=== PATIENT | male | born 1955 | race Caucasian/White ===

== ENCOUNTER 2023-02-07 18:47 | Emergency (ER) | payer MEDICARE, BC, SELFPAY ==
[2023-02-07 19:31] VITALS: BP 93/56; PULSE 87; RESP 18; TEMP 36.8; O2SAT 98; BMI 24.3
[2023-02-07 20:00] VITALS: BP 131/66; PULSE 82; RESP 18; O2SAT 99
[2023-02-07 20:30] VITALS: BP 145/75; PULSE 78; RESP 18; O2SAT 99
--- NOTE | 2023-02-07 20:34 | CT_ITS ---
PROCEDURE INFORMATION: Exam: CT Abdomen And Pelvis With Contrast Exam date and time: 02/07/2023 10:10 PM Age: 67 years old Clinical indication: Abdominal pain; Patient HX: Patient had CT [facility] with iv/oral contrast. C/O abd pain TECHNIQUE: Imaging protocol: Computed tomography of the abdomen and pelvis with contrast. Radiation optimization: All CT scans at this facility use at least one of these dose optimization techniques: automated exposure control; mA and/or kV adjustment per patient size (includes targeted exams where dose is matched to clinical indication); or iterative reconstruction. Contrast material: ISOVUE; Contrast volume: 75 ml; Contrast route: IV; REPORTING DATA: Count of CT and Cardiac NM exams in prior 12 months: This patient has received 0 known CTs and 0 known cardiac nuclear medicine studies in the 12 months prior to the current study. COMPARISON: No relevant prior studies available. FINDINGS: Lungs: Nonspecific subpleural reticulation of the lung bases. Coronary arteries: There is moderate coronary atherosclerotic disease/calcification. Liver: Normal. No mass. Gallbladder and bile ducts: The patient is status post cholecystectomy. There is dilation of the intrahepatic biliary ducts most likely reflecting post cholecystectomy effect. Pancreas: There is fatty replacement of the pancreas. Spleen: Normal. No splenomegaly. Adrenal glands: Normal. No mass. Kidneys and ureters: There is mild left hydroureter extending to the pelvis without an obstructing calculus seen. Stomach and bowel: Unremarkable. No obstruction. No mucosal thickening. Appendix: The appendix is normal. Intraperitoneal space: Unremarkable. No free air. No significant fluid collection. Vasculature: There is atherosclerotic disease of the visualized aorta and its major branch vessels. Lymph nodes: Unremarkable. No enlarged lymph nodes. Urinary bladder: There is moderate distention of the urinary bladder. Reproductive: Unremarkable as visualized. Bones/joints: The patient is status post median sternotomy. There is diffuse degenerative disease of the visualized osseous structures. 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 Soft tissues: There is bilateral gynecomastia. Nonspecific subcutaneous changes in the anterior abdominal wall bilaterally (image 92 series 3). IMPRESSION: 1. There is mild left hydroureter extending to a significantly distended urinary bladder without an obstructing calculus seen. 2. 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
--- NOTE | 2023-02-07 20:34 | XR_ITS ---
PROCEDURE INFORMATION: Exam: XR Chest Exam date and time: 02/07/2023 10:29 PM Age: 67 years old Clinical indication: Other: V/d; Prior surgery; Surgery date: 6+ months; Surgery type: Open heart 2007; Additional info: V d TECHNIQUE: Imaging protocol: Radiologic exam of the chest. Views: 1 view. COMPARISON: CT ABDOMEN PELVIS W CON 02/07/2023 10:10 PM FINDINGS: Lungs: Unremarkable. No consolidation. Pleural spaces: Unremarkable. No pleural effusion. No pneumothorax. Heart/Mediastinum: Unremarkable. No cardiomegaly. Bones/joints: The patient is status post median sternotomy. There is partially visualized cervical spine surgical hardware. IMPRESSION: No dense parenchymal consolidation, pleural effusion, or pneumothorax.
[2023-02-07 20:43] LABS: Basophils # 0.1 K/mm3 (0-0.2); Basophils % 1.2 % (0.1-2.0); Eosinophils # 0.1 K/mm3 (0.0-0.4); Hematocrit 40.2 % (42.0-52.0); Hemoglobin 12.5 g/dL (14.1-18.0); Lymphocytes # 2.2 K/mm3 (0.7-4.5); Lymphocytes % 32.9 % (10-50); Mean Corpuscular HGB Conc 31.2 g/dL (31.8-35.4); Mean Corpuscular Hemoglobin 28.8 pg (27.0-31.2); Mean Corpuscular Volume 92.1 fl (80-94); Mean Platelet Volume 9.1 fl (7.4-10.4); Monocytes # 0.4 K/mm3 (0.1-1.0); Monocytes % 5.9 % (1.7-9.3); Neutrophils # 3.8 K/mm3 (1.8-7.8); Neutrophils % 58.1 % (37.0-80.0); Platelet Count 178 K/mm3 (142-424); Red Blood Count 4.36 M/mm3 (4.60-6.20); White Blood Count 6.6 K/mm3 (4.8-10.8)
[2023-02-07 20:44] LABS: Chloride 100 mmol/L (98-107); Potassium 4.1 mmoL/L (3.5-5.1); Sodium 132 mmol/L (136-145)
[2023-02-07 20:46] LABS: Blood Urea Nitrogen 20 mg/dl (9-20)
[2023-02-07 20:47] LABS: Alanine Aminotransferase 23 U/L (12-78); Albumin Level 3.4 g/dl (3.5-5.0); Albumin/Globulin Ratio 1.2 (1.1-1.8); Alkaline Phosphatase 50 U/L (38-126); Anion Gap 13.1 mEq/L (5-15); Aspartate Amino Transferase 25 U/L (17-59); Bilirubin,Total 0.3 mg/dl (0.2-1.3); Calcium 8.2 mg/dl (8.4-10.2); Carbon Dioxide 23 mmol/L (22.0-30.0); Creatinine Clearance Estimated 76 mL/min (50-200); Estimated Glomerular Filt Rate 61 ml/min (>60); GFR (African American) 73 ML/MIN (>60); Globulin 2.8 g/dL (1.3-3.2); Lipase 62 U/L (23-300); Total Protein,Serum 6.2 g/dl (6.3-8.2)
[2023-02-07 21:00] VITALS: BP 161/77; RESP 18; O2SAT 99
[2023-02-07 21:02] LABS: Glucose 423 mg/dl (74-100)
[2023-02-07 21:30] VITALS: BP 162/85; PULSE 83; RESP 17; O2SAT 99
[2023-02-07 22:00] VITALS: BP 166/85; PULSE 78; RESP 18; O2SAT 99
--- NOTE | 2023-02-07 22:03 | HMH.EDGENADL ---
Discharge Plan Disposition Patient Disposition: Home, Self-Care Prescriptions Prescriptions: New ondansetron 4 mg tablet,disintegrating 4 mg PO Q8H PRN (Reason: nausea and vomiting) 4 Days Qty: 12 0RF No Action citalopram 40 mg tablet 40 mg PO DAILY diphenoxylate-atropine 2.5-0.025 mg tablet 2.5 tab PO Q6H PRN (Reason: unknown) simvastatin 40 mg tablet 40 mg PO DAILY metformin 1,000 mg tablet 1,000 mg PO DAILY metoprolol tartrate 25 mg tablet 25 mg PO DAILY insulin glargine [Basaglar KwikPen U-100 Insulin] 100 unit/mL (3 mL) insulin pen 50 unit SQ BID Patient Comments: ADMINISTER 50 UNITS UNDER THE SKIN 1 TIME EACH DAY IN THE MORNING aspirin 325 mg Tablet 325 mg PO DAILY Referrals Follow up/Referrals: Leonora Oavlle [Primary Care Provider] - See instructions Rajat Mcrae DO [Staff Physician] - See instructions Activity Restrictions/Add. Instructions Additional Instructions/Restrictions: At this time is felt you are safe to be discharged home. If new or worsening symptoms please do not hesitate to return the emergency department. Please take your medication as prescribed and call and schedule an appointment with Dr. Mcrae as soon as you are able. Clinical Impressions Clinical Impression: Abdominal pain, Acute hyperglycemia Discharge ED Provider: Tutu Hickey General Adult HPI General Chief complaint: Nausea/Vomiting/Diarrhea Stated complaint: V&D for 12 days Time Seen by Provider: 02/07/23 20:00 Mode of Arrival: Ambulatory Source of Information: Relative Limitations: No Limitations Description of Symptoms (Recalled from ER Triage Doc. by RN): 67 y/o male presents to ED with N/V/D x12 days. Increasing abd pain. Daughter reports she took patient to his primary care doctor on Saturday and she ordered a CT scan at [facility]. Daughter states they have not gotten the offical report of scan but was told he had a herina and a possible mass. Daughter reports 20lbs weight loss since October and increasing weakness. History of Present Illness HPI narrative: Patient is a 67-year-old male with past medical history of ACS status post stenting, hypertension, insulin-dependent diabetes who presents emergency department for evaluation of abdominal pain. History is obtained largely by family member at bedside. Over the last 3 months patient has lost 20 pounds through no effort of his own. Over the last 12 days he has had diffuse abdominal pain worse on the left side, nonbloody vomiting, nonbloody diarrhea. He ultimately presented to [facility] where he was reportedly diagnosed with a mass as well as a hernia for which she was discharged home with outpatient follow-up. They are concerned due to his persistent symptoms and lack of communication between providers and present here for continued evaluation. Patient symptoms are moderate to severe in intensity. Related Data Home Medications Medication Instructions Recorded Confirmed aspirin 325 mg tablet 325 mg PO DAILY Blood Thinner 02/07/23 02/07/23 citalopram 40 mg tablet 40 mg PO DAILY Depression 02/07/23 02/07/23 diphenoxylate-atropine 2.5 2.5 tab PO Q6H PRN unknown 02/07/23 02/07/23 mg-0.025 mg tablet insulin glargine 100 unit/mL (3 50 unit SQ BID Diabetes 02/07/23 02/07/23 mL) subcutaneous pen (Basaglar KwikPen U-100 Insulin) metformin 1,000 mg tablet 1,000 mg PO DAILY Diabetes 02/07/23 02/07/23 metoprolol tartrate 25 mg tablet 25 mg PO DAILY BP 02/07/23 02/07/23 simvastatin 40 mg tablet 40 mg PO DAILY Cholesterol 02/07/23 02/07/23 Previous Rx's Medication Instructions Recorded ondansetron 4 mg disintegrating 4 mg PO Q8H PRN nausea and 02/07/23 tablet vomiting 4 days #12 tabs Allergies Allergy/AdvReac Type Severity Reaction Status Date / Time ciprofloxacin [From Cipro] Allergy Verified 02/07/23 20:34 levofloxacin [From Levaquin] Allergy Verified 02/07/23 20:34 [facility]
[2023-02-07 22:18] LABS: VBG Base Excess -3.5 mmol/L (-2.4-2.3); VBG Oxygen Saturation 90.4 % (50-70); VBG PCO2 48.1 mmol/L (35-51); VBG PO2 63.3 mmol/L (28-40); VBG Total CO2 24.5 mmol/L (23-27)
[2023-02-07 22:31] LABS: Microscopic, Urine URINE MICROSCOPIC (MICROSCOPIC)
[2023-02-07 22:32] LABS: Appearance,Urine CLEAR (Clear); Bilirubin,Urine Negative (Negative); Blood, Urine Negative (Negative); Color,Urine YELLOW (Yellow); Glucose,Urine (UA) 3+ (Negative); Ketones,Urine Negative (Negative); Leukocyte Esterase,Urine Negative (Negative); Nitrate,Urine Negative (Negative); Protein,Urine 1+ (Negative); Urobilinogen,Urine 0.2 EU/dl (0.2)
[2023-02-07 23:15] LABS: Squamous Epithelial Cell,Urine Occasional #/hpf (0-5)
--- NOTE | 2023-02-07 23:30 | PC.NURSE ---
called lab and spoke with doug, advised of acetone lab add on
[2023-02-07 23:34] LABS: Acetone, Serum (Rapid) None Detected (None Detect)
[2023-02-08 01:00] VITALS: BP 114/72; PULSE 87; RESP 20; TEMP 36.4; O2SAT 97
== END 2023-02-08 00:55 | disposition home or self-care (01) ==
PROVIDERS: Emergency Provider Emergency Medicine; PCP Family Medicine
DX: R10.9 Unspecified abdominal pain (principal); E11.65 Type 2 diabetes mellitus with hyperglycemia; R11.2 Nausea with vomiting, unspecified; R19.7 Diarrhea, unspecified; R63.4 Abnormal weight loss; I10 Essential (primary) hypertension
CPT/HCPCS: 71045; 74177; 80053; 81001; 82009; 82803; 83605; 83690; 85025; 96361; 96374; 96375; 99285; J2405; Q9967

== ENCOUNTER → 2023-03-06 07:38 | Outpatient (CLI) | payer MEDICARE, BC, SELFPAY ==
--- NOTE | 2023-03-06 07:38 | NM_ITS ---
FINAL REPORT TECHNIQUE: Sequential anterior images were obtained after the ingestion of 2 whole eggs, white toast with butter, and 6 oz of water radiolabeled with 0.66 mCi technetium 99M sulfur colloid. CLINICAL HISTORY: Abd Pain, N/V, suspected diabetic gastroparesis 7:45 am .67 [facility] sulfur colloid injected into 2 whole eggs..white toast with butter and 6 oz cup of water COMPARISON: None FINDINGS: GASTRIC EMPTYING SCAN Static images show normal emptying of the stomach into the small bowel. Based on the time activity curve, the estimated half-emptying time is 149 minutes. IMPRESSION: Abnormally long gastric emptying study. Reviewed, Interpreted and Dictated by Osito Cantu III, MD Transcribed by Dalia Lawson Authenticated and [facility]
== END ==
PROVIDERS: PCP Internal Medicine; Visit Provider Internal Medicine
DX: E11.43 Type 2 diabetes mellitus with diabetic autonomic (poly)neuropathy (principal); K31.84 Gastroparesis; R10.9 Unspecified abdominal pain; Z79.4 Long term (current) use of insulin; Z79.84 Long term (current) use of oral hypoglycemic drugs
CPT/HCPCS: 78264; A9541

== ENCOUNTER 2023-03-27 07:56 | Observation (INO) | payer MEDICARE, BC, SELFPAY ==
[2023-03-27] VITALS (18 sets, daily range): BP systolic 131–181; BP diastolic 63–89; PULSE 80–91; RESP 11–18; TEMP 36.7–37.6; O2SAT 93–100; BMI 26.6; BMI 26.1
--- NOTE | 2023-03-27 08:04 | CT_ITS ---
FINAL REPORT TECHNIQUE: Thin section axial images were obtained from skull base to vertex without contrast. Coronal reconstruction images were obtained from the axial data. Exam was performed using dose reduction technique. CLINICAL HISTORY: fall, head trauma COMPARISON: None FINDINGS: There is age-appropriate atrophy. There is no mass effect or midline shift. There is no intracranial hemorrhage. There is no hydrocephalus. No focal parenchymal abnormalities are identified. The basilar cisterns are preserved. The posterior fossa is without acute abnormality. There is mucoperiosteal thickening in the left maxillary sinus, likely chronic. The soft tissues are without acute abnormality. No acute osseous abnormality is identified. IMPRESSION: No acute intracranial abnormality. Mild atrophy. Mucoperiosteal thickening in the left maxillary sinus, likely chronic. Reviewed, Interpreted and Dictated by Nelly Barton MD Transcribed by Noni Khan Authenticated and [facility]
--- NOTE | 2023-03-27 08:05 | CT_ITS ---
FINAL REPORT TECHNIQUE: Thin section axial images were obtained through the cervical spine without contrast. Multiplanar reconstruction images were obtained from the axial data. Exam was performed using dose reduction techniques. CLINICAL HISTORY: fall, +/- LOC COMPARISON: None FINDINGS: There is no acute fracture or acute malalignment of the cervical spine. There is no evidence of unilateral or bilateral facet lock. Vertebral body height is preserved. No acute paraspinal abnormality is identified. There is an anterior plate and screws bridging an anterior cervical fusion from the C5 through the C7 levels. Mild multilevel degenerative disc disease is present as well. IMPRESSION: No acute osseous abnormality of the cervical spine. Prior anterior cervical fusion C5-C7. Reviewed, Interpreted and Dictated by Nelly Barton MD Transcribed by Noni Khan Authenticated and [facility]
--- NOTE | 2023-03-27 08:05 | XR_ITS ---
FINAL REPORT CLINICAL HISTORY: fall, +/- LOC COMPARISON: 02/07/2023 FINDINGS: A portable view of the chest was obtained. A prior midline sternotomy has been performed. Cardiac and mediastinal silhouettes are within normal limits. The lungs are clear. There is no pleural effusion or pneumothorax. IMPRESSION: No acute process on this portable exam. Reviewed, Interpreted and Dictated by Nelly Barton MD Transcribed by Noni Khan Authenticated and [facility]
--- NOTE | 2023-03-27 08:13 | HMH.EDGENADL ---
Discharge Plan Disposition Patient Disposition: Home, Self-Care Prescriptions Prescriptions: No Action Jardiance 10 mg tablet 10 mg PO DAILY hyoscyamine sulfate 0.125 mg tablet, sublingual 0.125 mg PO QID Qty: 60 2RF hydroxyzine HCl 25 mg tablet 25 mg PO HS PRN (Reason: anxiety/difficulty sleeping) Qty: 30 2RF insulin lispro 100 unit/mL insulin pen 1 sliding scale dose SQ USEASDIRECTD Qty: 15 2RF promethazine 12.5 mg tablet 12.5 mg PO TID PRN (Reason: nausea and vomiting) Qty: 30 0RF citalopram 40 mg tablet 40 mg PO DAILY diphenoxylate-atropine 2.5-0.025 mg tablet 2.5 tab PO Q6H PRN (Reason: unknown) simvastatin 40 mg tablet 40 mg PO DAILY metformin 1,000 mg tablet 1,000 mg PO DAILY metoprolol tartrate 25 mg tablet 25 mg PO DAILY insulin glargine [Basaglar KwikPen U-100 Insulin] 100 unit/mL (3 mL) insulin pen 50 unit SQ BID Patient Comments: ADMINISTER 50 UNITS UNDER THE SKIN 1 TIME EACH DAY IN THE MORNING aspirin 325 mg Tablet 325 mg PO DAILY ondansetron 4 mg tablet,disintegrating 4 mg PO Q8H PRN (Reason: nausea and vomiting) 4 Days Qty: 12 0RF Referrals Follow up/Referrals: Rajat Mcrae DO [Primary Care Provider] - 03/28/23 9:00 am Provider,Referral, [Referring] - See instructions Activity Restrictions/Add. Instructions Additional Instructions/Restrictions: Call your family doctor to establish care for this visit to the emergency department and schedule follow-up within 48 hours to ensure improvement. If you have any worsening of your condition or any other concerning signs or symptoms, return to the emergency department or your primary care doctor for further evaluation. Follow-up with Dr. Mcrae tomorrow, 03/28 at 9 AM for further diabetes management. Clinical Impressions Clinical Impression: Facial laceration, Acute hyperglycemia, Fall, Uncontrolled diabetes mellitus Discharge ED Provider: Aaron Izaguirre General Adult HPI General Chief complaint: Fall Stated complaint: fall Time Seen by Provider: 03/27/23 08:00 History of Present Illness HPI narrative: 67-year-old male history of uncontrolled type 2 diabetes, gastroparesis, Charcot foot, CAD status post CABG currently on aspirin presenting with vomiting and fall. Patient states that he fell around 3 AM today, 03/27. Does not quite remember why he fell, but lives with his daughters who quickly attended to him. He hit his head and was bleeding, but was able to achieve hemostasis. Unsure about loss of consciousness before, during, after the fall. Denies headache, vision change, neck or back pain, but has been vomiting and having diarrhea, which is chronic. No blood in his vomit or stool. States that he has not been controlling his sugars or checking his sugars daily. Does not remember what his last A1c was. Other than this, asymptomatic at this time. Related Data Home Medications Medication Instructions Recorded Confirmed aspirin 325 mg tablet 325 mg PO DAILY Blood Thinner 02/07/23 03/27/23 citalopram 40 mg tablet 40 mg PO DAILY Depression 02/07/23 03/27/23 diphenoxylate-atropine 2.5 2.5 tab PO Q6H PRN unknown 02/07/23 03/27/23 mg-0.025 mg tablet insulin glargine 100 unit/mL (3 50 unit SQ BID Diabetes 02/07/23 03/27/23 mL) subcutaneous pen (Basaglar KwikPen U-100 Insulin) metformin 1,000 mg tablet 1,000 mg PO DAILY Diabetes 02/07/23 03/27/23 metoprolol tartrate 25 mg tablet 25 mg PO DAILY BP 02/07/23 03/27/23 simvastatin 40 mg tablet 40 mg PO DAILY Cholesterol 02/07/23 03/27/23 empagliflozin 10 mg tablet 10 mg PO DAILY 02/14/23 03/27/23 (Jardiance) Previous Rx's Medication Instructions Recorded ondansetron 4 mg disintegrating 4 mg PO Q8H PRN nausea and 02/07/23 tablet vomiting 4 days #12 tabs hydroxyzine HCl 25 mg tablet 25 mg PO HS PRN anxiety/difficulty 02/21/23 sleeping #30 tabs hyoscyamine sulfate 0.125 mg 0.125 mg PO QID #60 tabs 02/21/23 sublingual tablet insulin lispro 100 unit/mL 1 sliding scale dose SQ 02/22/23 subcutaneous pen USEASDIRECTD #15 mL promethazine 12.5 mg tablet 12.5 mg PO TID PRN nausea and 03/19/23 vomiting #30 tabs Allergies Allergy/AdvReac Type Severity Reaction Status Date / Time ciprofloxacin [From Cipro] Allergy Verified 03/27/23 08:32 levofloxacin [From Levaquin] Allergy Verified 03/27/23 08:32 PFSH [facility] Disclaimer: The information contained in this section may have been updated after the patient was seen, as this information can be updated by other users. Medical History Depression Diabetes type I Surgical History Hx of cholecystectomy S/P triple vessel bypass Social History Smoking Status: Never smoker alcohol intake: never current occupational status: other Travel in the last 8 weeks: None ROS Obtained: Yes All systems reviewed & no additional complaints except as documented Physical Exam General General appearance: alert and in no apparent distress Head Head exam: normocephalic and other (2 cm laceration frontal scalp over left eyebrow) Eye Eye exam: Present normal appearance, PERRL and EOMI ENT ENT exam: Present mucous membranes moist Neck Neck exam: Present normal inspection, full ROM and trachea midline Chest Chest inspection: Present other (Covered in vomitus) Respiratory Respiratory exam: Present normal lung sounds bilaterally; Absent respiratory distress, wheezes, stridor, accessory muscle use or prolonged expiratory phase Cardiovascular Cardiovascular exam: Present regular rate and normal rhythm Abdominal Exam Abdominal exam: Present soft; Absent distention, tenderness, guarding, rebound, rigidity or normal bowel sounds Extremities Exam Extremities exam: Present other (Multiple digital wounds. Worst of which is dorsal aspect of left long finger which appears necrotic. Surrounding erythema.); Absent edema Neurological Exam Neurological exam: Present alert, oriented X3, CN II-XII intact and normal gait; Absent motor sensory deficit Skin Skin exam: Present warm and dry; Absent diaphoresis or erythema Medical Decision Making Medical Records Medical records reviewed: Yes I reviewed the patient's medical records. Jaret Inquiry Pt receiving controlled substance: No Jaret was queried for this patient: No Vital Signs: 03/27/23 07:57 03/27/23 08:08 03/27/23 09:00 Temperature 98.0 F Temperature Source Oral Pulse Rate 85 86 Pulse Rate [Left Radial] 86 Respiratory Rate 17 13 Blood Pressure 169/82 H 131/70 Blood Pressure [Right Arm] 169/82 H Blood Pressure Mean [Right Arm] 111 02 Sat by Pulse Oximetry 95 96 95 Oxygen Delivery Method Room Air Room Air Room Air 03/27/23 09:30 03/27/23 10:01 03/27/23 10:30 Temperature Temperature Source Pulse Rate 85 82 82 Pulse Rate [Left Radial] Respiratory Rate 11 L 12 15 Blood Pressure 147/73 H 156/81 H 149/78 H Blood Pressure [Right Arm] Blood Pressure Mean [Right Arm] 02 Sat by Pulse Oximetry 96 97 96 Oxygen Delivery Method Room Air Room Air Lab Data Lab Results 03/27/23 08:06: VBG pH 7.25 L, VBG pCO2 53.0 H, VBG pO2 31.9, VBG HCO3 22.8 L, VBG Total CO2 24.4, VBG O2 Saturation 56.3, VBG Base Excess -4.4 L 03/27/23 08:16: WBC 9.7, RBC 4.36 L, Hgb 13.8 L, Hct 40.2 L, MCV 92.2, MCH 31.6 H, MCHC 34.3, RDW 13.4, Plt Count 152, MPV 9.3, Neut % (Auto) 78.4, Lymph % (Auto) 15.5, Early % (Auto) 4.6, Eos % (Auto) 0.8, Baso % (Auto) 0.6, Neut # (Auto) 7.6, Lymph # (Auto) 1.5, Early # (Auto) 0.5, Eos # (Auto) 0.1, Baso # (Auto) 0.1, PT 10.7, INR 0.99, APTT 24.2, Sodium 134 L, Potassium 3.6, Chloride 97 L, Carbon Dioxide 24, Anion Gap 16.6 H, BUN 21 H, Creatinine 1.10, Estimated Creat Clear 90, Estimated GFR 67, Est GFR ( Amer) 81, Glucose 483 H*, POC Glucose 461 H*, Hemoglobin A1c 12.4 H, Lactate 1.3, Calcium 9.2, Total Bilirubin 0.6, AST 25, ALT 19, Alkaline Phosphatase 60, Troponin I < 0.01, NT-Pro-B Natriuret Pep 790 H, Total Protein 7.1, Albumin 4.0, Globulin 3.1, Albumin/Globulin Ratio 1.3, Lipase 25, Acetone Level Small 03/27/23 10:33: POC Glucose 320 H* 03/27/23 11:46: Sodium 134 L, Potassium 3.6, Chloride 100, Carbon Dioxide 26, Anion Gap 11.6, BUN 21 H, Creatinine 1.00, Estimated Creat Clear 99, Estimated GFR 75, Est GFR ( Amer) 90, Glucose 338 H D, Calcium 8.8, Troponin I < 0.01 03/27/23 12:43: Urine Color Yellow, Urine Appearance Clear, Urine pH 6.0, Ur Specific Willis 1.020, Urine Protein 2+, Urine Glucose (UA) 3+, Urine Ketones 1+, Urine Blood 1+, Urine Nitrate Negative, Urine Bilirubin Negative, Urine Urobilinogen 0.2, Ur Leukocyte Esterase Negative 03/27/23 08:16 03/27/23 11:46 Orders (Tests/Meds): ED MEDICATIONS Discontinued Medications Generic Name Dose Route Start Last Admin Trade Name Jay PRN Reason Stop Dose Admin Lactated Ringer's 1,000 mls @ 999 mls/hr 03/27/23 08:04 03/27/23 09:20 Lactated Ringer's 1000 Ml Bag IV 03/27/23 09:04 999 mls/hr .Q1H1M ONE Administration Potassium Chloride/Water 100 mls @ 100 mls/hr 03/27/23 08:55 03/27/23 11:47 Potassium Chloride 10meq/100ml Ivpb IV 03/27/23 10:54 100 mls/hr Q1H RODRICK Administration Insulin Human Regular 5 unit 03/27/23 08:54 03/27/23 09:21 Insulin Human Regular 100 Units/Ml 10ml Vial 0.05 unit/kg (5 unit) 03/27/23 08:55 5 unit IV Administration ONCE ONE Insulin Human Regular 5 unit 03/27/23 12:12 03/27/23 12:22 Insulin Human Regular 100 Units/Ml 10ml Vial 0.05 unit/kg (5 unit) 03/27/23 12:13 5 unit IV Administration ONCE ONE Lidocaine HCl 10 ml 03/27/23 09:32 03/27/23 11:23 Lidocaine 1% 10ml Mdv SQ 03/27/23 09:33 10 ml ONCE ONE Administration ORDERS Category Date Time Status CT cervical spine wo con Stat Cat Scan 03/27/23 08:[address] head/brain wo con Stat Cat Scan 03/27/23 08:04 Taken XR chest portable Stat Exams 03/27/23 08:05 Taken Acetone, Serum (Rapid) Stat Lab 03/27/23 08:16 Completed Ammonia Stat Lab 03/27/23 08:05 Ordered BMP [Basic Metabolic Panel] Stat Lab 03/27/23 11:46 Completed Brain Natriuretic Peptide Stat Lab 03/27/23 08:16 Completed Complete Blood Count Auto Diff Stat Lab 03/27/23 08:16 Completed Comprehensive Metabolic Panel Stat Lab 03/27/23 08:16 Completed Hemoglobin A1C Stat Lab 03/27/23 08:16 Completed Lactic Acid Stat Lab 03/27/23 08:16 Completed Lipase Stat Lab 03/27/23 08:16 Completed POC Glucose,Bedside Routine Lab 03/27/23 08:16 Completed POC Glucose,Bedside Routine Lab 03/27/23 10:33 Completed PT INR [Prothrombin Time INR] Stat Lab 03/27/23 08:16 Completed PTT [Activated Partial Thrombo Time] Stat Lab 03/27/23 08:16 Completed Troponin I Q3H Lab 03/27/23 11:46 Completed Troponin I Q3H Lab 03/27/23 14:15 Ordered Troponin I Stat Lab 03/27/23 08:16 Completed Urinalysis and Microscopic Stat Lab 03/27/23 12:43 Results Blood Culture Stat Micro 03/27/23 08:21 Received Venous Blood Gas Stat RT 03/27/23 08:06 Completed ECG initial Besson Routine Y 03/27/23 08:43 Completed Medical Decision Narrative: 67-year-old male history of uncontrolled type 2 diabetes, gastroparesis, Charcot foot, CAD status post CABG currently on aspirin presenting with vomiting and fall. Patient states that he fell around 3 AM today, 03/27. Does not quite remember why he fell, but lives with his daughters who quickly attended to him. He hit his head and was bleeding, but was able to achieve hemostasis. Unsure about loss of consciousness before, during, after the fall. Denies headache, vision change, neck or back pain, but has been vomiting and having diarrhea, which is chronic. No blood in his vomit or stool. States that he has not been controlling his sugars or checking his sugars daily. Does not remember what his last A1c was. Other than this, asymptomatic at this time. History was obtained via conversation with patient and EMS. On arrival, patient hemodynamically stable, alert, oriented x4, appropriate, GCS 15, moving all extremities spontaneously, pupils equal and reactive to light. Full physical exam performed and significant for centimeter laceration overlying frontal scalp on left side of forehead. Hemostatic. No neck or back pain. Atraumatic otherwise. Patient answering questions appropriately. Neurologically intact. Nontachypneic, nontachycardic. No evidence of murmurs, gallops, rubs. Patient without lower extremity edema. Multiple digital wounds including 1 of which on the dorsal aspect of his left hand which appears necrotic. Patient states this has been there for months and he has had MRIs without signs of bone infection. Abdomen soft, nontender, nondistended. Differential includes dehydration, metabolic, endocrinologic, hypoxemia, ingestion, intoxication, withdrawal, sepsis, other infectious, encephalitis, seizure, intracranial bleed, trauma, neoplastic among others. Patient was given fluid bolus 1 L of LR for symptomatic management and correction of underlying abnormalities. Workup independently interpreted and significant for no leukocytosis, hemoglobin 13.8, platelets within normal limits. Coags normal. Patient mixed metabolic and respiratory acidosis mildly with pH 7.25, CO2 mildly elevated at 53, bicarb a little low at 22.8. Chemistry nonactionable overall, other than glucose. Potassium 3.6, BUN/creatinine stable. Glucose 483. Lactate negative at 1.3, lipase negative, troponin negative, LFTs negative. BNP also negative. Negative delta troponin. Small amount of acetone detected in the blood, urinalysis negative. CT head without acute intracranial bleed. CT C-spine without acute bony abnormality. Previous fusion present. Chest x-ray without acute cardiopulmonary airspace disease. See radiology read for full review of final results. Personal interpretation of EKG shows sinus rhythm 85 bpm with T wave inversions in lead I and aVL. Q waves in V1 through V4. No previous to compare with, but patient not complaining of chest pain and in no acute distress at this time. conveyor monitor ordered for patient's history and possible syncopal symptoms, 156/80, nontachycardic at 86. Breathing 14 times a minute. On reevaluation, patient resting comfortably after laceration repair. Hospital medicine was contacted regarding possible admission and further diabetes education and management considering patient's A1c greater than 12. Interactive conversation was had, outpatient follow-up was scheduled for patient tomorrow, 03/28, with Dr. Mcrae. Recommended close outpatient management given no evidence of DKA today with gap and electrolytes repeat. Because patient given insulin, he was kept in the emergency department for period of observation starting at 1030 and lasting until 1 PM for repeat labs. Repeat glucose was ordered as well as BMP. Nonactionable labs with improved anion gap, potassium 3.6. Another 5 units of insulin was given. Given patient presentation, workup, history, this most likely represents uncontrolled diabetes, dehydration. Because patient at baseline without signs or symptoms of clinical decompensation, deemed appropriate for discharge. Results were relayed to patient who voiced understanding and were agreeable to outpatient management and follow up. Patient was discharged in hemodynamically stable condition with recommended primary care follow-up. Procedures Laceration Laceration 1: Site: scalp Side (If applicable): left Size (cm): 3 Description: irregular Depth: simple, single layer Local Anesthetic: lidocaine 1% Amount of anesthesia used (mL): 5 Pre-repair: wound explored and irrigated extensively Skin layer closed with: vicryl Size (cm): 5-0 Number of sutures: 6 Technique: simple, interrupted Critical Care Critical Care Time Critical Care Time: No
[2023-03-27 08:22] LABS: POC Glucose,Bedside 461 (70-110)
[2023-03-27 08:30] LABS: Basophils # 0.1 K/mm3 (0-0.2); Basophils % 0.6 % (0.1-2.0); Eosinophils # 0.1 K/mm3 (0.0-0.4); Eosinophils % 0.8 % (0.1-12.0); Hematocrit 40.2 % (42.0-52.0); Hemoglobin 13.8 g/dL (14.1-18.0); Lymphocytes # 1.5 K/mm3 (0.7-4.5); Lymphocytes % 15.5 % (10-50); Mean Corpuscular HGB Conc 34.3 g/dL (31.8-35.4); Mean Corpuscular Hemoglobin 31.6 pg (27.0-31.2); Mean Corpuscular Volume 92.2 fl (80-94); Mean Platelet Volume 9.3 fl (7.4-10.4); Monocytes # 0.5 K/mm3 (0.1-1.0); Monocytes % 4.6 % (1.7-9.3); Neutrophils # 7.6 K/mm3 (1.8-7.8); Neutrophils % 78.4 % (37.0-80.0); Platelet Count 152 K/mm3 (142-424); Red Blood Count 4.36 M/mm3 (4.60-6.20); Red Cell Distribution Width 13.4 % (11.5-17.5); White Blood Count 9.7 K/mm3 (4.8-10.8)
[2023-03-27 08:35] LABS: INR 0.99 (0.9-1.1); Prothrombin Time 10.7 seconds (10.1-12.5)
[2023-03-27 08:36] LABS: Lipase 25 U/L (23-300)
[2023-03-27 08:37] LABS: Alanine Aminotransferase 19 U/L (12-78); Albumin/Globulin Ratio 1.3 (1.1-1.8); Alkaline Phosphatase 60 U/L (38-126); Anion Gap 16.6 mEq/L (5-15); Aspartate Amino Transferase 25 U/L (17-59); Bilirubin,Total 0.6 mg/dl (0.2-1.3); Blood Urea Nitrogen 21 mg/dl (9-20); Calcium 9.2 mg/dl (8.4-10.2); Carbon Dioxide 24 mmol/L (22.0-30.0); Chloride 97 mmol/L (98-107); Creatinine Clearance Estimated 90 mL/min (50-200); Estimated Glomerular Filt Rate 67 ml/min (>60); GFR (African American) 81 ML/MIN (>60); Globulin 3.1 g/dL (1.3-3.2); Lactic Acid 1.3 mmol/L (0.7-2.1); Potassium 3.6 mmoL/L (3.5-5.1); Sodium 134 mmol/L (136-145); Total Protein,Serum 7.1 g/dl (6.3-8.2)
[2023-03-27 08:38] LABS: Activated Partial Thrombo Time 24.2 seconds (22.8-30.6)
[2023-03-27 08:40] LABS: Glucose 483 mg/dl (74-100)
--- NOTE | 2023-03-27 08:43 | ECG_ITS ---
APPROVED REPORT Exam: Resting ECG HR:85 bpm ECG Measurements Heart Rate 85 AXES TX 192 P 50 QRSd 87 QRS 26 QT 375 T 105 QTc 418 Conclusion SINUS RHYTHM ANTEROSEPTAL MYOCARDIAL INFARCTION , OF INDETERMINATE AGE [40+ ms Q WAVE IN V1-V4] MARKED ST ELEVATION, CONSIDER INFERIOR INJURY [MARKED ST ELEVATION W/O NORMALLY INFLECTED T-WAVE IN II/aVF] ACUTE [place] UNCONFIRMED REPORT Electronically signed by : Rogelio Causey MD 03/27/2023 21:12:19
[2023-03-27 08:44] LABS: VBG Base Excess -4.4 mmol/L (-2.4-2.3); VBG HCO3 22.8 mmol/L (23-30); VBG Oxygen Saturation 56.3 % (50-70); VBG PH 7.25 mmol/L (7.31-7.41); VBG PO2 31.9 mmol/L (28-40); VBG Total CO2 24.4 mmol/L (23-27)
[2023-03-27 08:49] LABS: NT Pro Brain Natriuretic Pep. 790 pg/mL (0-125)
[2023-03-27 08:50] LABS: Troponin I < 0.01 ng/ml (0.00-0.034)
[2023-03-27] MEDS: LACTATED RINGERS 1000ML 1,000 ML 999 ML IV (09:20)
[2023-03-27] MEDS: INSULIN HUMAN REGULAR 100 UNITS/ML 10ML VIAL 5 UNIT IV ×2 (09:21→12:22)
--- NOTE | 2023-03-27 09:32 | PC.NURSE ---
Dr. Izaguirre at [facility] to suture
[2023-03-27 09:38] LABS: Acetone, Serum (Rapid) Small (None Detect)
[2023-03-27] MEDS: KCl 10mEq/100ml 100 ML 100 MEQ IV ×2 (10:08→11:47)
[2023-03-27 10:36] LABS: Hemoglobin A1C 12.4 % (4.0-6.0)
[2023-03-27 10:40] LABS: POC Glucose,Bedside 320 (70-110)
[2023-03-27] MEDS: LIDOCAINE 1% 10ML MDV 10 ML SQ (11:23)
[2023-03-27 11:59] LABS: Chloride 100 mmol/L (98-107); Sodium 134 mmol/L (136-145)
[2023-03-27 12:00] LABS: Potassium 3.6 mmoL/L (3.5-5.1)
[2023-03-27 12:02] LABS: Blood Urea Nitrogen 21 mg/dl (9-20); Creatinine Clearance Estimated 99 mL/min (50-200); Estimated Glomerular Filt Rate 75 ml/min (>60); GFR (African American) 90 ML/MIN (>60)
[2023-03-27 12:03] LABS: Anion Gap 11.6 mEq/L (5-15); Calcium 8.8 mg/dl (8.4-10.2); Carbon Dioxide 26 mmol/L (22.0-30.0); Glucose 338 mg/dl (74-100)
[2023-03-27 12:17] LABS: Troponin I < 0.01 ng/ml (0.00-0.034)
[2023-03-27 12:47] LABS: Appearance,Urine CLEAR (Clear); Bilirubin,Urine Negative (Negative); Blood, Urine 1+ (Negative); Color,Urine YELLOW (Yellow); Glucose,Urine (UA) 3+ (Negative); Ketones,Urine 1+ (Negative); Leukocyte Esterase,Urine Negative (Negative); Microscopic, Urine URINE MICROSCOPIC (MICROSCOPIC); Nitrate,Urine Negative (Negative); Protein,Urine 2+ (Negative); Urobilinogen,Urine 0.2 EU/dl (0.2)
[2023-03-27 13:08] LABS: Bacteria,Urine Trace /lpf; WBC,Urine Occasional #/hpf (0-3)
--- NOTE | 2023-03-27 13:17 | PC.NURSE ---
called pts daughter, Sindy, daughter states that she will be able to pick pt up around [phone]. pts daughter reports that she has a few things to finish up with her work.
--- NOTE | 2023-03-27 13:31 | PC.NURSE ---
diabetic lunch tray ordered for pt
--- NOTE | 2023-03-27 13:51 | EXP.HP ---
History of Present Illness *Admission Date: 03/27/23 *Reason for visit:: hyperglycemia, N/V *History of present illness: Mr. Anderson is a 67-year-old male with history of uncontrolled diabetes, gastroparesis, Charcot foot, CAD status post CABG currently on aspirin presenting with vomiting and fall. He lives with his daughters at home but is alone most of the time during the day. Bad neuropathy in his legs makes it difficult for him to walk. At best he ambulates with a walker. Has been having worsening nausea, vomiting, diarrhea for the past 5 to 6 weeks. Having at home with inability to get to the toilet. Presented to the ER today because of a fall at home around 3 AM. Does not quite remember why he fell, but lives with his daughters who quickly attended to him. He hit his head and was bleeding, but was able to achieve hemostasis. Unsure about loss of consciousness before, during, after the fall. Denies headache, vision change, neck or back pain, but has been vomiting and having diarrhea, which is chronic. No blood in his vomit or stool. States that he has not been controlling his sugars or checking his sugars daily. Does not remember what his last A1c was. Other than this, asymptomatic at this time. On work-up, found to have mild DKA with anion gap and positive acetone along with hyperglycemia. In light of his comorbidities, mild DKA, and debility, medicine was consulted for admission and therapy evaluation. On arrival to the floor, patient is alert and oriented x3. Able to answer questions appropriately. At his baseline level of health. [facility] Disclaimer: The information contained in this section may have been updated after the patient was seen, as this information can be updated by other users. Medical History Depression Diabetes type I Surgical History Hx of cholecystectomy S/P triple vessel bypass Social History Smoking Status: Never smoker alcohol intake: never current occupational status: other Travel in the last 8 weeks: None Review of Systems Review of Systems Review of systems (narrative): 14 point review of systems performed, pertinent positives and negatives as per HPI Meds Home Medications and Allergies Home Medications Medication Instructions Recorded Confirmed Type aspirin 325 mg tablet 325 mg PO DAILY Heart Health 02/07/23 03/27/23 History citalopram 40 mg tablet 40 mg PO DAILY Mood 02/07/23 03/27/23 History insulin glargine 100 unit/mL (3 56 unit SQ BID Diabetes 02/07/23 03/27/23 History mL) subcutaneous pen (Basaglar KwikPen U-100 Insulin) metformin 1,000 mg tablet 1,000 mg PO BIDWMEAL Diabetes 02/07/23 03/27/23 History metoprolol tartrate 25 mg tablet 25 mg PO DAILY High Blood Pressure 02/07/23 03/27/23 History ondansetron 4 mg disintegrating 4 mg PO Q8H PRN nausea and 02/07/23 03/27/23 Rx tablet vomiting 4 days #12 tabs simvastatin 40 mg tablet 40 mg PO HS Cholesterol 02/07/23 03/27/23 History empagliflozin 10 mg tablet 10 mg PO DAILY Diabetes 02/14/23 03/27/23 History (Jardiance) hydroxyzine HCl 25 mg tablet 25 mg PO HS PRN anxiety/difficulty 02/21/23 03/27/23 Rx sleeping #30 tabs hyoscyamine sulfate 0.125 mg 0.125 mg PO QID #60 tabs 02/21/23 03/27/23 Rx sublingual tablet insulin lispro 100 unit/mL 1 sliding scale dose SQ 02/22/23 03/27/23 Rx subcutaneous pen USEASDIRECTD #15 mL promethazine 12.5 mg tablet 12.5 mg PO TID PRN nausea and 03/19/23 03/27/23 Rx vomiting #30 tabs New Prescriptions to Start Prescriptions: Allergies Allergy/AdvReac Type Severity Reaction Status Date / Time ciprofloxacin [From Cipro] Allergy Verified 03/27/23 08:32 levofloxacin [From Levaquin] Allergy Verified 03/27/23 08:32 Exam Data for Last 24 hours Vital signs and Labs for Last 24 Hours: Temp Pulse Resp BP Pulse Ox O2 Del Method 98.0 F 89 18 156/78 H 97 Room Air 03/27/23 07:57 03/27/23 13:00 03/27/23 13:00 03/27/23 13:00 03/27/23 13:00 11/08/23 10:30 Laboratory Results - last 24 hr 03/27/23 08:06: VBG pH 7.25 L, VBG pCO2 53.0 H, VBG pO2 31.9, VBG HCO3 22.8 L, VBG Total CO2 24.4, VBG O2 Saturation 56.3, VBG Base Excess -4.4 L 03/27/23 08:16: WBC 9.7, RBC 4.36 L, Hgb 13.8 L, Hct 40.2 L, MCV 92.2, MCH 31.6 H, MCHC 34.3, RDW 13.4, Plt Count 152, MPV 9.3, Neut % (Auto) 78.4, Lymph % (Auto) 15.5, [place] % (Auto) 4.6, Eos % (Auto) 0.8, Baso % (Auto) 0.6, Neut # (Auto) 7.6, Lymph # (Auto) 1.5, [place] # (Auto) 0.5, Eos # (Auto) 0.1, Baso # (Auto) 0.1, PT 10.7, INR 0.99, APTT 24.2, Sodium 134 L, Potassium 3.6, Chloride 97 L, Carbon Dioxide 24, Anion Gap 16.6 H, BUN 21 H, Creatinine 1.10, Estimated Creat Clear 90, Estimated GFR 67, Est GFR ( Amer) 81, Glucose 483 H*, POC Glucose 461 H*, Hemoglobin A1c 12.4 H, Lactate 1.3, Calcium 9.2, Total Bilirubin 0.6, AST 25, ALT 19, Alkaline Phosphatase 60, Troponin I < 0.01, NT-Pro-B Natriuret Pep 790 H, Total Protein 7.1, Albumin 4.0, Globulin 3.1, Albumin/Globulin Ratio 1.3, Lipase 25, Acetone Level Small 03/27/23 10:33: POC Glucose 320 H* 03/27/23 11:46: Sodium 134 L, Potassium 3.6, Chloride 100, Carbon Dioxide 26, Anion Gap 11.6, BUN 21 H, Creatinine 1.00, Estimated Creat Clear 99, Estimated GFR 75, Est GFR ( Amer) 90, Glucose 338 H D, Calcium 8.8, Troponin I < 0.01 03/27/23 12:43: Urine Color Yellow, Urine Appearance Clear, Urine pH 6.0, Ur Specific [place] 1.020, Urine Protein 2+, Urine Glucose (UA) 3+, Urine Ketones 1+, Urine Blood 1+, Urine Nitrate Negative, Urine Bilirubin Negative, Urine Urobilinogen 0.2, Ur Leukocyte Esterase Negative, Urine RBC 3-5, Urine WBC Occasional, Ur Squamous Epith Cells 3-5, Urine Bacteria Trace I & O for Last 24 hours: Intake & Output 03/24/23 03/25/23 03/26/23 03/27/23 23:59 23:59 23:59 23:59 Weight 96.615 kg Constitutional Constitutional: no acute distress, average body habitus and chronically ill appearing *Routine HEENT Exam Head: Present normocephalic Eye: Present EOMI and PERRL ENT: Present mucous membranes moist Comments: 1 inch long laceration above left eyebrow, [address] *Routine Neck Exam Neck: Present supple; Absent JVD Routine Chest/Breast/Axilla Exam Chest wall: Absent tenderness *Routine Respiratory Exam Respiratory: Present CTA bilaterally; Absent accessory muscle use, respiratory distress, rhonchi, wheezes or crackles *Routine Cardiovascular Exam Cardiovascular: Present RRR, Normal S1 and Normal S2; Absent murmur *Routine Abdominal Exam Abdominal: Present soft and normoactive bowel sounds; Absent tenderness or distended *Routine Rectal Exam Rectal:: deferred *Routine Genitalia Exam Genitalia:: deferred *Routine Extremities Exam Extremities: Absent cyanosis, clubbing or edema *Routine Skin Exam Skin: Present intact; Absent cyanosis or erythema *Routine Neurological Exam Neurological: Present alert, oriented X3, CN II-XII intact, sensory deficit (Absent sensation below knees bilaterally) and moving all extremities; Absent altered mental status Comments: Strength 5/5 in upper extremities, 3/5 in lower extremities. Difficulty bearing weight and standing with two-person assist Routine Psychiatric Exam Psychiatric: Present normal affect and normal thought process; Absent suicidal ideation or homicidal ideation Assessment and Plan *Assessment and plan (1) DKA (diabetic ketoacidosis): Status: Acute Category: Medical Code(s): E11.10 - Type 2 diabetes mellitus with ketoacidosis without coma (2) Uncontrolled diabetes mellitus: Status: Acute Category: Medical (3) Acute hyperglycemia: Status: Acute Category: Medical Code(s): R73.9 - Hyperglycemia, unspecified (4) Diabetic gastroparesis associated with type 2 diabetes mellitus: Status: Chronic Category: Medical Code(s): E11.43 - Type 2 diabetes mellitus with diabetic autonomic (poly)neuropathy; K31.84 - Gastroparesis (5) Physical deconditioning: Status: Chronic Category: Medical Code(s): R53.81 - Other malaise (6) Gastroparesis: Problem Comment: due to diabetes, gastric emptying study with delayed emptying 03/06/23 Status: Acute Category: Medical Code(s): K31.84 - Gastroparesis Plan 67-year-old male who presented with fall at home. Laceration of left glabella. Found to be in mild DKA. Discussed case extensively with ER, request admission for correction of DKA, PT eval, and social needs. Medicine admitted for further management. Discussion with patient and family after he were arrived to the floor. Problems addressed as follows: Uncontrolled diabetes Mild DKA Hyperglycemia -A1c obtained, 12.4 today. -We will increase basal insulin to 60 units nightly. -Anion gap on arrival, corrected with sliding scale/subcu insulin. Positive for acetone and hyperglycemia on arrival as well. - Fingersticks ACHS, continue sliding scale high intensity insulin. Will develop regimen for mealtime with short acting insulin prior to discharge home -Continue Jardiance 10 mg daily, plan to increase to 25 at discharge -Holding metformin in the setting of diarrhea. Concern at side effects outweigh its benefits -Gap closed by the time he arrived to the floor. Anion gap 11. It was 16 on arrival. -Repeat CBC, CMP, magnesium ordered for the morning. Diarrhea Gastroparesis -Fiber 1250mg twice daily to help bulk stools and decreased diarrhea -Reglan 5 mg with meals for gastroparesis -If tolerates well, will discharge home on this regimen. Reviewed chart, gastric emptying study performed on 03/06 positive for delayed emptying. 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 PT and OT to eval -Gastroparesis as above. Hypertension -Blood pressure elevated on admission. Missed home meds this morning. -Continue metoprolol 25 mg daily - Initiate irbesartan 75 mg daily half dose of 37.5 mg this evening due to to blood pressure with systolic of 180, Full code Diabetic diet Lovenox daily Case management consulted and assisting with social needs including placement, medication PAs, etc.
[2023-03-27 14:41] LABS: Troponin I < 0.01 ng/ml (0.00-0.034)
--- NOTE | 2023-03-27 14:52 | SW/DCPLANNER ---
Addendum entered by [facility] 03/28/23 13:30: Jewels w/ [facility] stated that their van will transport patient from hospital today. Addendum entered by [facility] 03/28/23 11:51: [facility]els spoke w/ patient and reviewed patient information: patient is acceptable for PC at [facility]. Patient is agreeable to placement at [facility]. I updated patient that plan is to discharge to [facility] today. Patient stated that he will update his family. I also updated patient that he may need to provide transportation if [facility] van is not available. Patient will discharge today. Addendum entered by [facility] 03/28/23 07:22: Per patient/family request patient information has been faxed to [facility]/ [facility]. Original Note: I called and spoke w/ patient's person to notify ( Sussy) regarding discharge plans. Sussy stated that she is currently at [facility] and asked that I call and discuss discharge plans w/ daughter. I contacted daughter (Elyse) regarding discharge plans. Elyse stated that she was hoping for patient to have a qualifying stay to be admitted SNF level of care. I explained to Elyse that at this time w/ patient's insurance and OBS status that he will not have a qualifying stay but could go to placement under private pay if needed. Elyse then voiced that she is not interested in this option and would prefer patient to return home w/ home health services. I will continue to update patient/family and MD during discharge planning for this patient. Per MD pending no setbacks patient will be medically stable for discharge tomorrow.
--- NOTE | 2023-03-27 15:00 | PC.NURSE ---
report called to tomas on second floor
--- NOTE | 2023-03-27 15:22 | HMH.PHAINT1 ---
Pharmacy Intervention Comments: MEDICATION RECONCILIATION COMPLETED ON PATIENT USING EXTERNAL FILL HISTORY FROM PHARMACY AND LIST FROM PCP OFFICE. -KHRIS WISE, ELMIRAD
--- NOTE | 2023-03-27 15:36 | PC.NURSE ---
arrived by w/c from ED
[2023-03-27] MEDS: humaLOG 100 UNITS/ML 3ML VIAL (SSI) SQ ×2 (17:33→20:41)
[2023-03-27] MEDS: METOCLOPRAMIDE 5MG TABLET 5 MG PO (17:34)
[2023-03-27] MEDS: IRBESARTAN 75MG TABLET 37.5 MG PO (17:34)
[2023-03-27 17:43] LABS: POC Glucose,Bedside 300 (70-110)
--- NOTE | 2023-03-27 18:20 | PC.WOUNDNOTE ---
rt knee lt fingers rt hand
[2023-03-27] MEDS: ONDANSETRON 4MG ODT 4 MG PO (19:40)
[2023-03-27 20:17] LABS: POC Glucose,Bedside 295 (70-110)
[2023-03-27] MEDS: PRAVASTATIN 40MG TAB 80 MG PO (20:40)
[2023-03-27] MEDS: INSULIN GLARGINE 100 UNITS/ML 3ML FLEXPEN 60 UNIT SQ (20:42)
[2023-03-28] VITALS: BP 128/65; PULSE 89; RESP 19; TEMP 36.9; O2SAT 94
[2023-03-28 04:00] VITALS: BP 144/76; PULSE 81; PULSE 85; RESP 17; TEMP 36.9; O2SAT 97; BMI 26.4
[2023-03-28 05:41] LABS: POC Glucose,Bedside 220 (70-110)
[2023-03-28] MEDS: humaLOG 100 UNITS/ML 3ML VIAL (SSI) SQ ×2 (05:56→10:33)
[2023-03-28] MEDS: METOCLOPRAMIDE 5MG TABLET 5 MG PO ×2 (06:10→10:34)
[2023-03-28 06:19] LABS: Basophils # 0.1 K/mm3 (0-0.2); Basophils % 0.9 % (0.1-2.0); Eosinophils # 0.1 K/mm3 (0.0-0.4); Eosinophils % 1.7 % (0.1-12.0); Hematocrit 37.9 % (42.0-52.0); Hemoglobin 13.2 g/dL (14.1-18.0); Lymphocytes # 2.2 K/mm3 (0.7-4.5); Lymphocytes % 25.9 % (10-50); Mean Corpuscular HGB Conc 34.8 g/dL (31.8-35.4); Mean Corpuscular Hemoglobin 31.7 pg (27.0-31.2); Mean Platelet Volume 9.6 fl (7.4-10.4); Monocytes # 0.5 K/mm3 (0.1-1.0); Monocytes % 6.3 % (1.7-9.3); Neutrophils # 5.5 K/mm3 (1.8-7.8); Neutrophils % 65.1 % (37.0-80.0); Platelet Count 155 K/mm3 (142-424); Red Blood Count 4.16 M/mm3 (4.60-6.20); Red Cell Distribution Width 13.5 % (11.5-17.5); White Blood Count 8.5 K/mm3 (4.8-10.8)
[2023-03-28 06:43] LABS: Alanine Aminotransferase 21 U/L (12-78); Albumin Level 3.9 g/dl (3.5-5.0); Albumin/Globulin Ratio 1.3 (1.1-1.8); Alkaline Phosphatase 59 U/L (38-126); Anion Gap 19.3 mEq/L (5-15); Aspartate Amino Transferase 30 U/L (17-59); Bilirubin,Total 0.5 mg/dl (0.2-1.3); Blood Urea Nitrogen 21 mg/dl (9-20); Calcium 9.1 mg/dl (8.4-10.2); Carbon Dioxide 22 mmol/L (22.0-30.0); Chloride 98 mmol/L (98-107); Creatinine Clearance Estimated 99 mL/min (50-200); Estimated Glomerular Filt Rate 75 ml/min (>60); GFR (African American) 90 ML/MIN (>60); Glucose 221 mg/dl (74-100); Magnesium 2.1 mg/dl (1.6-2.3); Potassium 3.3 mmoL/L (3.5-5.1); Sodium 136 mmol/L (136-145); Total Protein,Serum 6.9 g/dl (6.3-8.2)
--- NOTE | 2023-03-28 07:52 | P.DS_ITS ---
General Admission date:: 03/27/23 Discharge date: 03/28/23 HPI HPI HPI: Mr. Anderson is a 67-year-old male with history of uncontrolled diabetes, gastroparesis, Charcot foot, CAD status post CABG currently on aspirin presenting with vomiting and fall. He lives with his daughters at home but is alone most of the time during the day. Bad neuropathy in his legs makes it difficult for him to walk. At best he ambulates with a walker. Has been having worsening nausea, vomiting, diarrhea for the past 5 to 6 weeks. Having at home with inability to get to the toilet. Presented to the ER today because of a fall at home around 3 AM. Does not quite remember why he fell, but lives with his daughters who quickly attended to him. He hit his head and was bleeding, but was able to achieve hemostasis. Unsure about loss of consciousness before, during, after the fall. Denies headache, vision change, neck or back pain, but has been vomiting and having diarrhea, which is chronic. No blood in his vomit or stool. States that he has not been controlling his sugars or checking his sugars daily. Does not remember what his last A1c was. Other than this, asymptomatic at this time. On work-up, found to have mild DKA with anion gap and positive acetone along with hyperglycemia. In light of his comorbidities, mild DKA, and debility, medicine was consulted for admission and therapy evaluation. On arrival to the floor, patient is alert and oriented x3. Able to answer questions appropriately. At his baseline level of health. Hospital Course Hospital Course Hospital Course: 67-year-old male who presented with fall at home. Laceration of left glabella. Found to be in mild DKA. Discussed case extensively with ER, request admission for correction of DKA, PT eval, and social needs. Medicine admitted for further management. Patient remained stable overnight. Adjustments made to medications. Glucose control improved. Evaluated by PT/OT, Stable to [place] to personal care setting. Problems addressed as follows: Uncontrolled diabetes Mild DKA Hyperglycemia -On arrival, patient's glucose was elevated and he had a mild anion gap. A1c obtained, 12.4. Adjustments made to his insulin regimen including increasing his basal insulin to 60 units and starting on sliding scale. Morning glucose still above 200 at 221. We will increase basal insulin with Lantus to 65 units nightly moving forward. Recommend mealtime insulin of 15 units scheduled with meals. Would also recommend monitoring glucose 3-4 times a day to make further adjustment once in the personal care setting. Would benefit from nutrition consult to adjust diet for diabetic needs. Patient also initiated on Jardiance, increased to 25 mg daily. Discontinued his metformin due to diarrhea and stool incontinence. Recommend repeat CBC, CMP, magnesium in 1 week to monitor for stability of labs. Will need repeat A1c in 3 months. Diarrhea Gastroparesis -Patient's chart, he had a gastric emptying study performed on 03/06 that was positive for delayed emptying. Started on Reglan 5 mg with meals 3 times a day for gastroparesis. Has tolerated well with no nausea during admission. Tolerating p.o. intake well. No bowel movement during admission. Started on fiber supplement, decreased to 625 mg twice daily to help bulk stools and decrease risk for diarrhea. 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 Needs PT and OT eval for therapy. Not currently on any neuropathy meds such as pregabalin or gabapentin. Will defer decision to possibly initiate these medications to excepting physician. Hypertension -Blood pressure elevated on arrival. Resumed home metoprolol 25 mg daily. Given his diabetes however, started on irbesartan 75 mg daily for goal-directed therapy with his diabetes and CKD. Blood pressure better controlled. Blood pressure at noon prior to discharge was 121/58. Stable for discharge to personal care setting at [place]. Appreciate their assistance in care. Medications sent to [facility] pharmacy. Spent 35 minutes in discharge counseling, medication adjustments, documentation, chart review, discussion with social work, and direct care with patient. Exam Data for Last 24 hours Vital signs and Labs for Last 24 Hours: Temp Pulse Resp BP Pulse Ox O2 Del Method 98.5 F 85 17 144/76 H 97 Room Air 03/28/23 04:00 03/28/23 04:00 03/28/23 04:00 03/28/23 04:00 03/28/23 04:00 03/28/23 06:25 Laboratory Results - last 24 hr 03/27/23 08:06: VBG pH 7.25 L, VBG pCO2 53.0 H, VBG pO2 31.9, VBG HCO3 22.8 L, VBG Total CO2 24.4, VBG O2 Saturation 56.3, VBG Base Excess -4.4 L 03/27/23 08:16: WBC 9.7, RBC 4.36 L, Hgb 13.8 L, Hct 40.2 L, MCV 92.2, MCH 31.6 H, MCHC 34.3, RDW 13.4, Plt Count 152, MPV 9.3, Neut % (Auto) 78.4, Lymph % (Auto) 15.5, [place] % (Auto) 4.6, Eos % (Auto) 0.8, Baso % (Auto) 0.6, Neut # (Auto) 7.6, Lymph # (Auto) 1.5, [place] # (Auto) 0.5, Eos # (Auto) 0.1, Baso # (Auto) 0.1, PT 10.7, INR 0.99, APTT 24.2, Sodium 134 L, Potassium 3.6, Chloride 97 L, Carbon Dioxide 24, Anion Gap 16.6 H, BUN 21 H, Creatinine 1.10, Estimated Creat Clear 90, Estimated GFR 67, Est GFR ( Amer) 81, Glucose 483 H*, POC Glucose 461 H*, Hemoglobin A1c 12.4 H, Lactate 1.3, Calcium 9.2, Total Bilirubin 0.6, AST 25, ALT 19, Alkaline Phosphatase 60, Troponin I < 0.01, NT-Pro-B Natriuret Pep 790 H, Total Protein 7.1, Albumin 4.0, Globulin 3.1, Albumin/Globulin Ratio 1.3, Lipase 25, Acetone Level Small 03/27/23 10:33: POC Glucose 320 H* 03/27/23 11:46: Sodium 134 L, Potassium 3.6, Chloride 100, Carbon Dioxide 26, Anion Gap 11.6, BUN 21 H, Creatinine 1.00, Estimated Creat Clear 99, Estimated GFR 75, Est GFR ( Amer) 90, Glucose 338 H D, Calcium 8.8, Troponin I < 0.01 03/27/23 12:43: Urine Color Yellow, Urine Appearance Clear, Urine pH 6.0, Ur Specific [place] 1.020, Urine Protein 2+, Urine Glucose (UA) 3+, Urine Ketones 1+, Urine Blood 1+, Urine Nitrate Negative, Urine Bilirubin Negative, Urine Urobilinogen 0.2, Ur Leukocyte Esterase Negative, Urine RBC 3-5, Urine WBC Occasional, Ur Squamous Epith Cells 3-5, Urine Bacteria Trace 03/27/23 14:09: Troponin I < 0.01 03/27/23 17:07: POC Glucose 300 H 03/27/23 20:06: POC Glucose 295 H 03/28/23 05:34: POC Glucose 220 H 03/28/23 05:39: WBC 8.5, RBC 4.16 L, Hgb 13.2 L, Hct 37.9 L, MCV 91.0, MCH 31.7 H, MCHC 34.8, RDW 13.5, Plt Count 155, MPV 9.6, Neut % (Auto) 65.1, Lymph % (Auto) 25.9, [place] % (Auto) 6.3, Eos % (Auto) 1.7, Baso % (Auto) 0.9, Neut # (Auto) 5.5, Lymph # (Auto) 2.2, [place] # (Auto) 0.5, Eos # (Auto) 0.1, Baso # (Auto) 0.1, Sodium 136, Potassium 3.3 L, Chloride 98, Carbon Dioxide 22, Anion Gap 19.3 H, BUN 21 H, Creatinine 1.00, Estimated Creat Clear 99, Estimated GFR 75, Est GFR ( Amer) 90, Glucose 221 H D, Calcium 9.1, Magnesium 2.1, Total Bilirubin 0.5, AST 30, ALT 21, Alkaline Phosphatase 59, Total Protein 6.9, Albumin 3.9, Globulin 3.0, Albumin/Globulin Ratio 1.3 I & O for Last 24 hours: Intake & Output 03/25/23 03/26/23 03/27/23 03/28/23 23:59 23:59 23:59 23:59 Intake Total 240 / 460 220 / 220 Output Total 800 / 800 1050 / 1050 Balance -560 / -340 -830 / -830 Weight 94.886 kg 96.524 kg Constitutional Constitutional: no acute distress, average body habitus and chronically ill appearing *Routine HEENT Exam Head: Present normocephalic Eye: Present EOMI and PERRL ENT: Present mucous membranes moist Comments: Sutured laceration of left eyebrow, [address] *Routine Neck Exam Neck: Present supple; Absent lymphadenopathy *Routine Respiratory Exam Respiratory: Present CTA bilaterally *Routine Cardiovascular Exam Cardiovascular: Present RRR *Routine Abdominal Exam Abdominal: Present soft and normoactive bowel sounds; Absent tenderness *Routine Extremities Exam Extremities: Absent cyanosis, clubbing or edema *Routine Skin Exam Skin: Present warm; Absent rash *Routine Neurological Exam Neurological: Present alert, oriented X3, sensory deficit and moving all extremities; Absent altered mental status Results Data Completed and Pending Labs on day of discharge: Labs from last 24 hours 03/28/23 03/28/23 03/27/23 05:39 05:34 20:06 WBC 8.5 RBC 4.16 L Hgb 13.2 L Hct 37.9 L MCV 91.0 MCH 31.7 H MCHC 34.8 RDW 13.5 Plt Count 155 MPV 9.6 Neut % (Auto) 65.1 Lymph % (Auto) 25.9 [place] % (Auto) 6.3 Eos % (Auto) 1.7 Baso % (Auto) 0.9 Neut # (Auto) 5.5 Lymph # (Auto) 2.2 [place] # (Auto) 0.5 Eos # (Auto) 0.1 Baso # (Auto) 0.1 PT INR APTT VBG pH VBG pCO2 VBG pO2 VBG HCO3 VBG Total CO2 VBG O2 Saturation VBG Base Excess Sodium 136 Potassium 3.3 L Chloride 98 Carbon Dioxide 22 Anion Gap 19.3 H BUN 21 H Creatinine 1.00 Estimated Creat Clear 99 Estimated GFR 75 Est GFR ( Amer) 90 Glucose 221 H D POC Glucose 220 H 295 H Hemoglobin A1c Lactate Calcium 9.1 Magnesium 2.1 Total Bilirubin 0.5 AST 30 ALT 21 Alkaline Phosphatase 59 Troponin I NT-Pro-B Natriuret Pep Total Protein 6.9 Albumin 3.9 Globulin 3.0 Albumin/Globulin Ratio 1.3 Lipase Urine Color Urine Appearance Urine pH Ur Specific [place] Urine Protein Urine Glucose (UA) Urine Ketones Urine Blood Urine Nitrate Urine Bilirubin Urine Urobilinogen Ur Leukocyte Esterase Urine RBC Urine WBC Ur Squamous Epith Cells Urine Bacteria Acetone Level 03/27/23 03/27/23 03/27/23 17:07 14:09 12:43 WBC RBC Hgb Hct MCV MCH MCHC RDW Plt Count MPV Neut % (Auto) Lymph % (Auto) [place] % (Auto) Eos % (Auto) Baso % (Auto) Neut # (Auto) Lymph # (Auto) [place] # (Auto) Eos # (Auto) Baso # (Auto) PT INR APTT VBG pH VBG pCO2 VBG pO2 VBG HCO3 VBG Total CO2 VBG O2 Saturation VBG Base Excess Sodium Potassium Chloride Carbon Dioxide Anion Gap BUN Creatinine Estimated Creat Clear Estimated GFR Est GFR ( Amer) Glucose POC Glucose 300 H Hemoglobin A1c Lactate Calcium Magnesium Total Bilirubin AST ALT Alkaline Phosphatase Troponin I < 0.01 NT-Pro-B Natriuret Pep Total Protein Albumin Globulin Albumin/Globulin Ratio Lipase Urine Color Yellow Urine Appearance Clear Urine pH 6.0 Ur Specific [place] 1.020 Urine Protein 2+ Urine Glucose (UA) 3+ Urine Ketones 1+ Urine Blood 1+ Urine Nitrate Negative Urine Bilirubin Negative Urine Urobilinogen 0.2 Ur Leukocyte Esterase Negative Urine RBC 3-5 Urine WBC Occasional Ur Squamous Epith Cells 3-5 Urine Bacteria Trace Acetone Level 03/27/23 03/27/23 03/27/23 11:46 10:33 08:16 WBC 9.7 RBC 4.36 L Hgb 13.8 L Hct 40.2 L MCV 92.2 MCH 31.6 H MCHC 34.3 RDW 13.4 Plt Count 152 MPV 9.3 Neut % (Auto) 78.4 Lymph % (Auto) 15.5 [place] % (Auto) 4.6 Eos % (Auto) 0.8 Baso % (Auto) 0.6 Neut # (Auto) 7.6 Lymph # (Auto) 1.5 [place] # (Auto) 0.5 Eos # (Auto) 0.1 Baso # (Auto) 0.1 PT 10.7 INR 0.99 APTT 24.2 VBG pH VBG pCO2 VBG pO2 VBG HCO3 VBG Total CO2 VBG O2 Saturation VBG Base Excess Sodium 134 L 134 L Potassium 3.6 3.6 Chloride 100 97 L Carbon Dioxide 26 24 Anion Gap 11.6 16.6 H BUN 21 H 21 H Creatinine 1.00 1.10 Estimated Creat Clear 99 90 Estimated GFR 75 67 Est GFR ( Amer) 90 81 Glucose 338 H D 483 H* POC Glucose 320 H* 461 H* Hemoglobin A1c 12.4 H Lactate 1.3 Calcium 8.8 9.2 Magnesium Total Bilirubin 0.6 AST 25 ALT 19 Alkaline Phosphatase 60 Troponin I < 0.01 < 0.01 NT-Pro-B Natriuret Pep 790 H Total Protein 7.1 Albumin 4.0 Globulin 3.1 Albumin/Globulin Ratio 1.3 Lipase 25 Urine Color Urine Appearance Urine pH Ur Specific [place] Urine Protein Urine Glucose (UA) Urine Ketones Urine Blood Urine Nitrate Urine Bilirubin Urine Urobilinogen Ur Leukocyte Esterase Urine RBC Urine WBC Ur Squamous Epith Cells Urine Bacteria Acetone Level Small 03/27/23 08:06 WBC RBC Hgb Hct MCV MCH MCHC RDW Plt Count MPV Neut % (Auto) Lymph % (Auto) [place] % (Auto) Eos % (Auto) Baso % (Auto) Neut # (Auto) Lymph # (Auto) [place] # (Auto) Eos # (Auto) Baso # (Auto) PT INR APTT VBG pH 7.25 L VBG pCO2 53.0 H VBG pO2 31.9 VBG HCO3 22.8 L VBG Total CO2 24.4 VBG O2 Saturation 56.3 VBG Base Excess -4.4 L Sodium Potassium Chloride Carbon Dioxide Anion Gap BUN Creatinine Estimated Creat Clear Estimated GFR Est GFR ( Amer) Glucose POC Glucose Hemoglobin A1c Lactate Calcium Magnesium Total Bilirubin AST ALT Alkaline Phosphatase Troponin I NT-Pro-B Natriuret Pep Total Protein Albumin Globulin Albumin/Globulin Ratio Lipase Urine Color Urine Appearance Urine pH Ur Specific [place] Urine Protein Urine Glucose (UA) Urine Ketones Urine Blood Urine Nitrate Urine Bilirubin Urine Urobilinogen Ur Leukocyte Esterase Urine RBC Urine WBC Ur Squamous Epith Cells Urine Bacteria Acetone Level DS: Diagnosis Discharge Diagnosis (1) DKA (diabetic ketoacidosis): Status: Acute Code(s): E11.10 - Type 2 diabetes mellitus with ketoacidosis without coma (2) Uncontrolled diabetes mellitus: Status: Acute (3) Acute hyperglycemia: Status: Acute Code(s): R73.9 - Hyperglycemia, unspecified (4) Diabetic gastroparesis associated with type 2 diabetes mellitus: Status: Chronic Code(s): E11.43 - Type 2 diabetes mellitus with diabetic autonomic (poly)neuropathy; K31.84 - Gastroparesis (5) Physical deconditioning: Status: Chronic Code(s): R53.81 - Other malaise (6) Gastroparesis: Status: Acute Code(s): K31.84 - Gastroparesis Problem details: due to diabetes, gastric emptying study with delayed emptying 03/06/23 Meds Home Medications and Allergies Home Medications Medication Instructions Recorded Confirmed Type aspirin 325 mg tablet 325 mg PO DAILY [facility] 02/07/23 03/27/23 History citalopram 40 mg tablet 40 mg PO DAILY Mood 02/07/23 03/27/23 History metoprolol tartrate 25 mg tablet 25 mg PO DAILY High Blood Pressure 02/07/23 03/27/23 History simvastatin 40 mg tablet 40 mg PO HS Cholesterol 02/07/23 03/27/23 History calcium polycarbophil 625 mg 625 mg PO BID 30 days #60 tabs 03/28/23 Rx tablet (FiberCon) empagliflozin 25 mg tablet 25 mg PO DAILY 30 days #30 tabs 03/28/23 Rx insulin aspart 15 unit SQ AC 30 days #15 mL 03/28/23 Rx (niacinamide)(U-100) 100 unit/mL(3 mL) subcutaneous pen insulin glargine 100 unit/mL (3 65 unit (0.65 mL) SQ HS 30 days 03/28/23 Rx mL) subcutaneous pen (Lantus #19.5 mL Solostar U-100 Insulin) irbesartan 75 mg tablet 75 mg PO DAILY 30 days #30 tabs 03/28/23 Rx metoclopramide HCl 5 mg tablet 5 mg PO AC 30 days #90 tabs 03/28/23 Rx New Prescriptions to Start Prescriptions: calcium polycarbophil [FiberCon] Quang Foster empagliflozin Quang Foster insulin aspart (niacinamide) Quang Foster insulin glargine [Lantus Solostar U-100 Insulin] Quang Foster irbesartan Quang Foster metoclopramide HCl Quang Foster Allergies Allergy/AdvReac Type Severity Reaction Status Date / Time ciprofloxacin [From Cipro] Allergy Verified 03/27/23 08:32 levofloxacin [From Levaquin] Allergy Verified 03/27/23 08:32 Discharge Plan Disposition Patient Disposition: Home, Self-Care Condition: Fair Follow up Plan Follow up with: Rajat Mcrae DO [Primary Care Provider] - Enter time for follow up Prescriptions/Medication Reconciliation: New empagliflozin 25 mg tablet 25 mg PO DAILY 30 Days Qty: 30 0RF insulin glargine [Lantus Solostar U-100 Insulin] 100 unit/mL (3 mL) Insulin Pen 65 unit SQ HS 30 Days Qty: 19.5 0RF metoclopramide HCl 5 mg Tablet 5 mg PO AC 30 Days Qty: 90 0RF calcium polycarbophil [FiberCon] 625 mg Tablet 625 mg PO BID 30 Days Qty: 60 0RF irbesartan 75 mg Tablet 75 mg PO DAILY 30 Days Qty: 30 0RF insulin aspart (niacinamide) 100 unit/mL (3 mL) insulin pen 15 unit SQ AC 30 Days Qty: 15 0RF Continued citalopram 40 mg tablet 40 mg PO DAILY simvastatin 40 mg tablet 40 mg PO HS metoprolol tartrate 25 mg tablet 25 mg PO DAILY aspirin 325 mg Tablet 325 mg PO DAILY Discontinued Jardiance 10 mg tablet 10 mg PO DAILY hyoscyamine sulfate 0.125 mg tablet, sublingual 0.125 mg PO QID Qty: 60 2RF hydroxyzine HCl 25 mg tablet 25 mg PO HS PRN (Reason: anxiety/difficulty sleeping) Qty: 30 2RF insulin lispro 100 unit/mL insulin pen 1 sliding scale dose SQ USEASDIRECTD Qty: 15 2RF promethazine 12.5 mg tablet 12.5 mg PO TID PRN (Reason: nausea and vomiting) Qty: 30 0RF metformin 1,000 mg tablet 1,000 mg PO BIDWMEAL insulin glargine [Basaglar KwikPen U-100 Insulin] 100 unit/mL (3 mL) insulin pen 56 unit SQ BID ondansetron 4 mg tablet,disintegrating 4 mg PO Q8H PRN (Reason: nausea and vomiting) 4 Days Qty: 12 0RF Problem Reconciliation Problems Reviewed?: Yes Patient Discharge Instructions ACTIVITY: Ambulate as tolerated DIET: continue same diet and diabetic diet Patient Instructions: DI for Hyperglycemia -- Adult, DI for Muscle Weakness, Diabetic Ketoacidosis Providers Primary Care Provider: Rajat Mcrae Admit Provider: Quang Foster Attending Provider: Quang Foster
[2023-03-28 08:00] VITALS: BP 131/60; PULSE 89; PULSE 90; RESP 19; TEMP 36.8; O2SAT 95
[2023-03-28] MEDS: EMPAGLIFLOZIN 10MG TABLET 10 MG PO (08:57)
[2023-03-28] MEDS: CITALOPRAM 40MG TABLET 40 MG PO (08:57)
[2023-03-28] MEDS: ENOXAPARIN 40MG/0.4ML SYRINGE 40 MG SQ (08:57)
[2023-03-28] MEDS: ASPIRIN 325MG TABLET 325 MG PO (08:57)
[2023-03-28] MEDS: METOPROLOL TARTRATE 25MG TABLET 25 MG PO (08:58)
[2023-03-28] MEDS: IRBESARTAN 75MG TABLET 75 MG PO (08:59)
[2023-03-28] MEDS: CALCIUM POLYCARBOPHIL 625MG TAB 1250 MG PO (08:59)
--- NOTE | 2023-03-28 09:48 | HMH.OTEV ---
OT Inpatient Evaluation Rehab OT IP Evaluation Start: 03/27/23 13:49 Freq: ONCE Status: Active Protocol: Document 03/28/23 09:44 MILEYNOAM (Rec: 03/28/23 09:48 KEENARAKAN [id number]) Rehab OT IP Assessment Subjective History Mr. Anderson is a 67-year-old male with history of uncontrolled diabetes, gastroparesis, Charcot foot, CAD status post CABG currently on aspirin presenting with vomiting and fall. He lives with his daughters at home but is alone most of the time during the day. Bad neuropathy in his legs makes it difficult for him to walk. At best he ambulates with a walker. Has been having worsening nausea, vomiting, diarrhea for the past 5 to 6 weeks. Having at home with inability to get to the toilet. Presented to the ER today because of a fall at home around 3 AM. Does not quite remember why he fell, but lives with his daughters who quickly attended to him. He hit his head and was bleeding, but was able to achieve hemostasis. Unsure about loss of consciousness before, during, after the fall . Denies headache, vision change, neck or back pain, but has been vomiting and having diarrhea, which is chronic. No blood in his vomit or stool . States that he has not been controlling his sugars or checking his sugars daily. Does not remember what his last A1c was. Other than this , asymptomatic at this time. On work-up, found to have mild DKA with anion gap and positive acetone along with hyperglycemia. In light of his comorbidities, mild DKA, and debility, medicine was consulted for admission and therapy evaluation. On arrival to the floor, patient is alert and oriented x3. Able to answer questions appropriately. At his baseline level of health. Patient lives in a 1 story home with two daughters and one son-in- law. Patient able to complete all ADLs independently expect for bathing. Dtrs assist patient with bathing tasks. Patient used a RW to ambulate within home. Subjective I can get up. Instructed Patient on safety awareness during bed mobility, transfers and ADLs. Patient completed task with SBA. Patient appears to be at baseline with fx'l mobility with usage of RW. Patient uses a RW at home for safety and support. Objective Patient Orientation Person,Place,Name,Age,Birthday ,Year Upper Extremity Gross ROM WFL Bed Mobility bed mobility - supine/sit Assist Level Independent Transfer Training Sit/Stand Transfer Assist Level Supervision/Stand by Chair Transfer Ability Supervision/Stand by Chair Transfer Technique Sit to/from Ambulatory Chair Transfer Assistive Devices Rolling Walker Lower Body Dressing Ability Standby Assistance Rehab OT IP prob,goals,plan Problems Date of Evaluation: 03/28/23 Rehab Potential Rehab Potential Innapropriate for Skilled Therapy Discharge Plan OT Discharge Plan Patient appears to be at baseline with ADLs and fx'l mobility. Patient to return to home with family and services. Eval Complexity Eval Charge Codes 02183 - Low Complexity PHYSICIAN CERTIFICATION: I certify the specified therapy services for Madan Anderson are required, authorized, and reviewed every 30 days.
--- NOTE | 2023-03-28 09:52 | HMH.PTEV ---
Physical Therapy Evaluation Rehab PT IP Evaluation Start: 03/27/23 13:49 Freq: ONCE Status: Active Protocol: Document 03/28/23 09:47 NOE (Rec: 03/28/23 09:52 PHOISAMAR [id number]) Subjective/History History History 67 yowm adm to [facility] with hyperglycemia and weakness. He has PMH of DM, CAD, CABG, charcot foot, gastoparesis. He lives with his daughters, no ARLINE, uses a rolling walker for ambulation with hx of falls, significant B LE neuropathy, he is generally independent with ADLs. Subjective Subjective He reports no c/o this am, feling much better, agrees to mobility assessment. New diagnosis of cancer in past 12 No months? Rehab PT IP Eval Objective Appearance Patient Behavior Appropriate Patient Orientation Person,Place,Time Difficulty following instructions none Speech Pattern Clear Ambulation Patient Able to Ambulate Yes Ambulation Observation IP General Gait Pattern Observation Wide Based Gait Ambulation Distance (feet) 75 Ambulation Assistive Device Rolling Walker Ambulation Ability Contact Guard/Hand Hold Balance Ability to Arise Able, uses arms to help Sitting Balance Steady, safe Standing Balance Unsteady Dynamic Sitting Balance Ability Good Dynamic Standing Balance Ability Fair Transfers Bed Transfer Ability Contact Guard/Hand Hold Chair Transfer Ability Contact Guard/Hand Hold Sit to Stand Bed Transfer Ability Contact Guard/Hand Hold Sit to Stand Chair Transfer Ability Contact Guard/Hand Hold Rehab PT IP prob,goals,plan Problems Date of Evaluation: 03/28/23 Discharge Plan PT Discharge Plan Pt appears to be at baseline for all mobility this date and would be appropriate for [facility] if this is an option. Recommend Home Health Therapy. Eval Complexity Eval Charge Codes 46330 - High Complexity PHYSICIAN CERTIFICATION: I certify the specified therapy services for Madan Anderson are required, authorized, and reviewed every 30 days.
[2023-03-28 10:58] LABS: POC Glucose,Bedside 362 (70-110)
[2023-03-28 11:38] VITALS: BP 121/58; PULSE 72; RESP 18; TEMP 36.6; O2SAT 99
[2023-03-28 12:00] VITALS: PULSE 70
--- NOTE | 2023-03-29 14:56 | CARE MANAGER ---
Contacted number on file for patient and daughter answered. She states she assumes he is fine and denies any questions or concerns. ROBIN Matthews
== END 2023-03-28 14:05 | disposition home or self-care (01) ==
LOC: ER 14:10 → 2ND 14:47
PROVIDERS: Admitting Provider Internal Medicine Adolescent Medicine; Emergency Provider Emergency Medicine; PCP Internal Medicine; Visit Provider Internal Medicine Adolescent Medicine
DX: E11.10 Type 2 diabetes mellitus with ketoacidosis without coma (principal); E11.43 Type 2 diabetes mellitus with diabetic autonomic (poly)neuropathy; K31.84 Gastroparesis; R53.81 Other malaise; Z95.1 Presence of aortocoronary bypass graft; Z79.4 Long term (current) use of insulin; Z79.899 Other long term (current) drug therapy; I25.10 Atherosclerotic heart disease of native coronary artery without angina pectoris; N18.9 Chronic kidney disease, unspecified; W01.0XXA Fall on same level from slipping, tripping and stumbling without subsequent striking against object, initial encounter; Y92.012 Bathroom of single-family (private) house as the place of occurrence of the external cause; R06.9 Unspecified abnormalities of breathing; I12.9 Hypertensive chronic kidney disease with stage 1 through stage 4 chronic kidney disease, or unspecified chronic kidney disease; S01.01XA Laceration without foreign body of scalp, initial encounter
CPT/HCPCS: 12002; 36415; 70450; 71045; 72125; 80048; 80053; 81001; 82009; 82803; 82962; 83036; 83605; 83690; 83735; 83880; 84484; 85025; 85610; 85730; 87040; 93005; 97163; 97165; 99285; G0378

== ENCOUNTER → 2023-04-13 05:44 | Outpatient (CLI) | payer MEDICARE, BC, SELFPAY ==
[2023-04-13 06:03] LABS: Basophils % 0.3 % (0.1-2.0); Eosinophils % 0.3 % (0.1-12.0); Hemoglobin 12.5 g/dL (14.1-18.0); Lymphocytes # 1.1 K/mm3 (0.7-4.5); Lymphocytes % 9.3 % (10-50); Mean Corpuscular HGB Conc 32.1 g/dL (31.8-35.4); Mean Corpuscular Hemoglobin 29.8 pg (27.0-31.2); Mean Platelet Volume 9.5 fl (7.4-10.4); Monocytes # 0.5 K/mm3 (0.1-1.0); Monocytes % 4.3 % (1.7-9.3); Neutrophils % 85.8 % (37.0-80.0); Platelet Count 199 K/mm3 (142-424); Red Blood Count 4.19 M/mm3 (4.60-6.20); Red Cell Distribution Width 13.6 % (11.5-17.5); White Blood Count 11.6 K/mm3 (4.8-10.8)
[2023-04-13 06:31] LABS: Alanine Aminotransferase 45 U/L (12-78); Albumin Level 3.8 g/dl (3.5-5.0); Albumin/Globulin Ratio 1.4 (1.1-1.8); Alkaline Phosphatase 107 U/L (38-126); Anion Gap 15.6 mEq/L (5-15); Aspartate Amino Transferase 60 U/L (17-59); Bilirubin,Total 0.6 mg/dl (0.2-1.3); Blood Urea Nitrogen 28 mg/dl (9-20); Calcium 8.4 mg/dl (8.4-10.2); Carbon Dioxide 23 mmol/L (22.0-30.0); Chloride 99 mmol/L (98-107); Estimated Glomerular Filt Rate 67 ml/min (>60); GFR (African American) 81 ML/MIN (>60); Globulin 2.7 g/dL (1.3-3.2); Glucose 290 mg/dl (74-100); Magnesium 2.4 mg/dl (1.6-2.3); Potassium 4.6 mmoL/L (3.5-5.1); Sodium 133 mmol/L (136-145); Total Protein,Serum 6.5 g/dl (6.3-8.2)
[2023-04-13 07:58] LABS: MANUAL DIFFERENTIAL MANUAL DIFFERENTIAL (MANUAL DIFF)
[2023-04-13 13:52] LABS: Lymphocytes % 12 % (10-50); Monocytes % 2 % (2-9); Neutrophils % 86 % (42-76); Platelet Estimate Normal; RBC Morphology Normal; Total Cells Counted 100
== END ==
PROVIDERS: PCP Family Medicine; Visit Provider Family Medicine
DX: E11.9 Type 2 diabetes mellitus without complications (principal); Z79.4 Long term (current) use of insulin
CPT/HCPCS: 80053; 83735; 85007; 85025

== ENCOUNTER 2023-09-29 11:23 | Emergency (ER) | payer MEDICARE, BC, SELFPAY ==
[2023-09-29] VITALS (13 sets, daily range): BP systolic 106–168; BP diastolic 69–94; PULSE 75–95; RESP 11–17; TEMP 36.4–36.8; O2SAT 96–99; BMI 25.7
--- NOTE | 2023-09-29 11:47 | ECG_ITS ---
APPROVED REPORT Exam: Resting ECG HR:95 bpm ECG Measurements Heart Rate 95 AXES ND 175 P 69 QRSd 92 QRS 93 QT 403 T 80 QTc 456 Conclusion SINUS RHYTHM WITH OCCASIONAL SUPRAVENTRICULAR PREMATURE COMPLEXES BORDERLINE RIGHT AXIS DEVIATION [QRS AXIS > 90] ANTEROLATERAL MYOCARDIAL INFARCTION , OF INDETERMINATE AGE [40+ ms Q WAVE IN I/aVL/V3-V6] ABNORMAL ECG UNCONFIRMED REPORT Electronically signed by : Quang Olivas, 09/29/2023 15:19:33
--- NOTE | 2023-09-29 12:24 | XR_ITS ---
PROCEDURE INFORMATION: Exam: XR Chest Exam date and time: 09/29/2023 12:33 PM Age: 68 years old Clinical indication: Angina pectoris; Patient HX: Mild SOA, chest pain TECHNIQUE: Imaging protocol: Radiologic exam of the chest. Views: 1 view. COMPARISON: CR XR CHEST PORTABLE 03/27/2023 8:48 AM FINDINGS: Lungs: Unremarkable. No consolidation. Pleural spaces: Unremarkable. No pleural effusion. No pneumothorax. Heart/Mediastinum: Unremarkable. No cardiomegaly. Bones/joints: Unremarkable. IMPRESSION: No acute findings.
[2023-09-29 12:32] LABS: Basophils # 0.1 K/mm3 (0-0.2); Basophils % 0.8 % (0.1-2.0); Eosinophils # 0.1 K/mm3 (0.0-0.4); Eosinophils % 0.5 % (0.1-12.0); Hematocrit 43.2 % (42.0-52.0); Lymphocytes # 1.3 K/mm3 (0.7-4.5); Lymphocytes % 12.6 % (10-50); Mean Corpuscular HGB Conc 32.4 g/dL (31.8-35.4); Mean Corpuscular Hemoglobin 30.7 pg (27.0-31.2); Mean Corpuscular Volume 94.6 fl (80-94); Mean Platelet Volume 8.9 fl (7.4-10.4); Monocytes # 0.5 K/mm3 (0.1-1.0); Monocytes % 4.5 % (1.7-9.3); Neutrophils # 8.6 K/mm3 (1.8-7.8); Neutrophils % 81.7 % (37.0-80.0); Platelet Count 188 K/mm3 (142-424); Red Blood Count 4.57 M/mm3 (4.60-6.20); Red Cell Distribution Width 13.2 % (11.5-17.5); White Blood Count 10.6 K/mm3 (4.8-10.8)
[2023-09-29 12:36] LABS: Alanine Aminotransferase 31 U/L (12-78); Albumin Level 3.8 g/dl (3.5-5.0); Albumin/Globulin Ratio 1.1 (1.1-1.8); Alkaline Phosphatase 69 U/L (38-126); Anion Gap 14.4 mEq/L (5-15); Aspartate Amino Transferase 32 U/L (17-59); Bilirubin,Total 0.7 mg/dl (0.2-1.3); Blood Urea Nitrogen 31 mg/dl (9-20); Calcium 9.2 mg/dl (8.4-10.2); Carbon Dioxide 27 mmol/L (22.0-30.0); Chloride 101 mmol/L (98-107); Creatinine Clearance Estimated 68 mL/min (50-200); Estimated Glomerular Filt Rate 51 ml/min (>60); GFR (African American) 61 ML/MIN (>60); Globulin 3.5 g/dL (1.3-3.2); Glucose 160 mg/dl (74-100); Potassium 3.4 mmoL/L (3.5-5.1); Sodium 139 mmol/L (136-145); Total Protein,Serum 7.3 g/dl (6.3-8.2)
--- NOTE | 2023-09-29 12:37 | XR_ITS ---
PROCEDURE INFORMATION: Exam: XR Right Humerus Exam date and time: 09/29/2023 1:00 PM Age: 68 years old Clinical indication: Injury or trauma; Fall; Blunt trauma (contusions or hematomas); Arm, upper; Right; Additional info: Fall, injury TECHNIQUE: Imaging protocol: Radiologic exam of the right humerus. Views: 2 or more views. COMPARISON: CT CHEST W CON 09/29/2023 12:59 PM FINDINGS: Bones/joints: Normal. Soft tissues: Normal. IMPRESSION: No acute findings.
--- NOTE | 2023-09-29 12:37 | CT_ITS ---
PROCEDURE INFORMATION: Exam: CT Cervical Spine Without Contrast Exam date and time: 09/29/2023 12:57 PM Age: 68 years old Clinical indication: Injury or trauma; Fall; Blunt trauma; Additional info: Falls, pain, 40 lb wt loss TECHNIQUE: Imaging protocol: Computed tomography of the cervical spine without contrast. Radiation optimization: All CT scans at this facility use at least one of these dose optimization techniques: automated exposure control; mA and/or kV adjustment per patient size (includes targeted exams where dose is matched to clinical indication); or iterative reconstruction. COMPARISON: CT CERVICAL SPINE WO CON 03/27/2023 9:30 AM FINDINGS: Bones: Postoperative changes from C5-C7 ACDF. No hardware-related complication noted. Vertebral alignment is maintained. There is preservation of vertebral body heights. Facet joints are aligned. Odontoid process is intact. Atlantoaxial interval maintained. No acute fracture. Uncovertebral and facet arthropathy result in varying degrees of neural foraminal narrowing at multiple levels. No evidence of significant spinal canal stenosis or neural foraminal narrowing at any level. Lungs: Lung apices are normal. Soft tissues: Prevertebral and paravertebral soft tissues are maintained IMPRESSION: No acute fracture. No traumatic subluxation.
--- NOTE | 2023-09-29 12:37 | CT_ITS ---
PROCEDURE INFORMATION: Exam: CT Chest With Contrast; Diagnostic Exam date and time: 09/29/2023 12:59 PM Age: 68 years old Clinical indication: Injury or trauma; Fall; Blunt trauma (contusions or hematomas); Additional info: Falls, pain, 40 lb wt loss TECHNIQUE: Imaging protocol: Diagnostic computed tomography of the chest with contrast. Radiation optimization: All CT scans at this facility use at least one of these dose optimization techniques: automated exposure control; mA and/or kV adjustment per patient size (includes targeted exams where dose is matched to clinical indication); or iterative reconstruction. Contrast material: ISOVUE; Contrast volume: 75 ml; Contrast route: IV; COMPARISON: CR XR CHEST PORTABLE 09/29/2023 12:33 PM FINDINGS: Lungs: Unremarkable. No consolidation. No masses. Pleural spaces: Unremarkable. No pneumothorax. No pleural effusion. Heart: Unremarkable. No cardiomegaly. No pericardial effusion. Lymph nodes: Unremarkable. No enlarged lymph nodes. Vasculature: Unremarkable. No aortic aneurysm. Bones/joints: Unremarkable. No acute fracture. Soft tissues: Unremarkable. IMPRESSION: No acute findings.
--- NOTE | 2023-09-29 12:37 | CT_ITS ---
PROCEDURE INFORMATION: Exam: CT Head Without Contrast Exam date and time: 09/29/2023 12:55 PM Age: 68 years old Clinical indication: Injury or trauma; Fall; Blunt trauma (contusions or hematomas); Additional info: Falls, pain, 40 lb wt loss TECHNIQUE: Imaging protocol: Computed tomography of the head without contrast. Radiation optimization: All CT scans at this facility use at least one of these dose optimization techniques: automated exposure control; mA and/or kV adjustment per patient size (includes targeted exams where dose is matched to clinical indication); or iterative reconstruction. COMPARISON: CT HEAD/BRAIN WO CON 03/27/2023 9:28 AM FINDINGS: Brain: There is no evidence of acute intracranial hemorrhage, extra-axial collection or locoregional mass effect. There are scattered hypodensities in the periventricular and subcortical white matter. The appearance is nonspecific, but most likely represents chronic small vessel disease in a person of this age Cerebral ventricles: The ventricles, sulci and cisterns are normal in size and configuration for patient's age. No hydrocephalus or midline structure shift Pituitary gland and sella: Sellar/parasellar structures, craniocervical junction and orbits are unremarkable Paranasal sinuses: Scattered mucosal thickening throughout the paranasal sinuses. Mastoid air cells: Visualized mastoid air cells are well aerated. Bones: No calvarial fracture Soft tissues: Unremarkable. IMPRESSION: No acute intracranial abnormality. No calvarial fracture.
--- NOTE | 2023-09-29 12:37 | CT_ITS ---
PROCEDURE INFORMATION: Exam: CT Abdomen And Pelvis With Contrast Exam date and time: 09/29/2023 12:59 PM Age: 68 years old Clinical indication: Injury or trauma; Fall; Blunt; Generalized; Additional info: Falls, pain, 40 lb wt loss TECHNIQUE: Imaging protocol: Computed tomography of the abdomen and pelvis with contrast. Radiation optimization: All CT scans at this facility use at least one of these dose optimization techniques: automated exposure control; mA and/or kV adjustment per patient size (includes targeted exams where dose is matched to clinical indication); or iterative reconstruction. Contrast material: ISOVUE; Contrast volume: 75 ml; Contrast route: IV; COMPARISON: CT ABDOMEN PELVIS W CON 02/07/2023 10:10 PM FINDINGS: Liver: Evaluation of the liver limited by streak artifact from incorrect patient positioning. Gallbladder and bile ducts: Previous cholecystectomy. Pancreas: Normal. No ductal dilation. Spleen: Normal. No splenomegaly. Adrenal glands: Stable left adrenal nodule measuring 1.1 x 1 cm, further characterization not possible on current study. Right adrenal gland unremarkable. Kidneys and ureters: Normal. No hydronephrosis. Stomach and bowel: Unremarkable. No obstruction. No mucosal thickening. Appendix: No evidence of appendicitis. Intraperitoneal space: Unremarkable. No free air. No significant fluid collection. Vasculature: Unremarkable. No abdominal aortic aneurysm. Lymph nodes: Unremarkable. No enlarged lymph nodes. Urinary bladder: Worsening distension of the urinary bladder with bladder extending far above the umbilicus. Bladder outlet obstruction cannot be excluded. Reproductive: Unremarkable as visualized. Bones/joints: Grade 1 anterolisthesis L5-S1 with bilateral spondylolysis. Soft tissues: Stable large soft tissue densities within subcutaneous fat in the anterior abdominal wall at the level of the umbilicus. Etiology uncertain. IMPRESSION: 1. Worsening distension of the urinary bladder with bladder extending far above the umbilicus. Bladder outlet obstruction cannot be excluded. 2. Stable large soft tissue densities within subcutaneous fat in the anterior abdominal wall at the level of the umbilicus. Etiology uncertain. 3. Stable left adrenal nodule measuring 1.1 x 1 cm, further characterization not possible on current study.
[2023-09-29 12:48] LABS: Troponin I 0.05 ng/ml (0.00-0.034)
--- NOTE | 2023-09-29 12:49 | HMH.EDGENADL ---
Discharge Plan Disposition Patient Disposition: Home, Self-Care Prescriptions Prescriptions: No Action (DME) lancets Misc See Rx Instructions .Route Qty: 200 5RF Rx Instructions: As directed prochlorperazine maleate 5 mg tablet 5 mg PO TID PRN (Reason: nausea and vomiting) Qty: 30 3RF empagliflozin 25 mg tablet 25 mg PO DAILY 30 Days Qty: 90 3RF atorvastatin 40 mg tablet 40 mg PO DAILY Qty: 90 3RF aspirin [Adult Low Dose Aspirin] 81 mg tablet,delayed release (DR/EC) 81 mg PO DAILY Qty: 90 3RF insulin glargine [Basaglar KwikPen U-100 Insulin] 100 unit/mL (3 mL) insulin pen 50 unit SQ BID Qty: 15 3RF citalopram 20 mg tablet 20 mg PO DAILY Qty: 90 0RF losartan 25 mg tablet 25 mg PO DAILY Qty: 90 3RF (DME) Blood Glucose Test Strip See Rx Instructions .ROUTE .MEDSUPPLY Qty: 50 6RF Rx Instructions: As directed Ozempic 0.25 mg or 0.5 mg (2 mg/3 mL) pen injector 0.25 mg SQ WEEKLY Qty: 3 1RF Rx Instructions: for 4 weeks (DME) blood-glucose meter [Blood Glucose Monitoring] Kit See Rx Instructions .ROUTE .MEDSUPPLY Qty: 1 0RF Rx Instructions: As directed or bid (DME) Dexcom G6 Soft Work Wrapper Layer And Examiner Misc See Rx Instructions .Route Qty: 1 0RF Rx Instructions: As directed (DME) Dexcom G6 Sensor Device See Rx Instructions .Route Qty: 3 3RF Rx Instructions: As directed every 10 days (DME) Dexcom G6 Transmitter Device See Rx Instructions .Route Qty: 1 0RF Rx Instructions: As directed quetiapine 25 mg tablet 25 mg PO DAILY Qty: 30 2RF (DME) Omnipod 5 G6 Intro Kit (Gen 5) Cartridge See Rx Instructions .Route Qty: 1 0RF Rx Instructions: As directed FiberCon 625 mg tablet 625 mg PO BID Qty: 180 3RF metoclopramide HCl 5 mg tablet 5 mg PO AC Qty: 270 0RF insulin aspart U-100 [Novolog FlexPen U-100 Insulin] 100 unit/mL (3 mL) insulin pen 1 sliding scale dose SQ DAILY Qty: 15 4RF Referrals Follow up/Referrals: Rajat Mcrae DO [Primary Care Provider] - See instructions Activity Restrictions/Add. Instructions Additional Instructions/Restrictions: . Clinical Impressions Clinical Impression: Falls frequently, Ataxia, Urinary incontinence, Acute urinary retention, Encephalopathy acute, Myocardial injury, CKD (chronic kidney disease) Discharge ED Provider: Devon Olivas General Adult HPI General Chief complaint: Weakness Stated complaint: not taken meds, bodyaches poss uti Time Seen by Provider: 09/29/23 12:27 Mode of Arrival: Wheelchair Source of Information: Patient and Relative Limitations: Physical Limitations Description of Symptoms (Recalled from ER Triage Doc. by RN): Pt c/o frequent falls, chest pain, weakness, and body aches from the falls. Daughter at bedside states pt has been noncompliant with his medicines and has refused to be evaluated. Daughter reports pt fell yesterday in the home, hitting the back of his head and was unconscious for several minutes per his . Pt denies any vision changes. Denies any new neck pain, he does have a hx of c-spine fusion. Several skin tears and abrasions t/o arms and knees. Healing cut to Forehead. Daughter is concerned he might have an infection causing his weakness. History of Present Illness HPI narrative: Patient is a 68-year-old male who is accompanied by his daughters who presents today with multiple complaints. They state over the last several weeks has had numerous changes in his baseline status including confusion increased weakness falls. He is fallen numerous times he states that he has had injuries to his right proximal humerus right lateral aspect of his chest into his head. He is not on any into regulation but is on daily aspirin. He does complain of right lateral chest pain and proximal humeral pain and some mild headache. Additionally he has had a 40 pound unintentional weight loss this year. No diagnosis of malignancy to his knowledge. His family has been trying to get him to come to the emergency department for several weeks and he finally agreed to it today. Related Data Previous Rx's Medication Instructions Recorded aspirin 81 mg tablet,delayed 81 mg PO DAILY #90 tabs 07/26/23 release (Adult Low Dose Aspirin) atorvastatin 40 mg tablet 40 mg PO DAILY #90 tabs 07/26/23 citalopram 20 mg tablet 20 mg PO DAILY #90 tabs 07/26/23 empagliflozin 25 mg tablet 25 mg PO DAILY 30 days #90 tabs 07/26/23 insulin glargine 100 unit/mL (3 50 unit (0.5 mL) SQ BID #15 mL 07/26/23 mL) subcutaneous pen (Basaglar KwikPen U-100 Insulin) lancets #200 ea 07/26/23 losartan 25 mg tablet 25 mg PO DAILY #90 tabs 07/26/23 prochlorperazine maleate 5 mg 5 mg PO TID PRN nausea and 07/26/23 tablet vomiting #30 tabs blood sugar diagnostic (Blood #50 ea 08/15/23 Glucose Test strips) semaglutide 0.25 mg or 0.5 mg (2 0.25 mg (0.368 mL) SQ WEEKLY #3 mL 08/15/23 mg/3 mL) subcutaneous pen injector (Ozempic) blood-glucose meter (Blood Glucose #1 ea 08/16/23 Monitoring kit) blood-glucose meter,continuous #1 ea 08/27/23 (Dexcom G6 Soft Work Wrapper Layer And Examiner) blood-glucose sensor (Dexcom G6 #3 ea 08/27/23 Sensor device) blood-glucose transmitter (Dexcom #1 ea 09/19/23 G6 Transmitter device) insulin pump cartridge,automated #1 ea 09/19/23 dose,BT with controller subcutaneous (Omnipod 5 G6 Intro Kit (Gen 5) subcutaneous cartridge with controller) quetiapine 25 mg tablet 25 mg PO DAILY #30 tabs 09/19/23 calcium polycarbophil 625 mg 625 mg PO BID #180 tabs 09/23/23 tablet (FiberCon) metoclopramide HCl 5 mg tablet 5 mg PO AC #270 tabs 09/23/23 insulin aspart U-100 100 unit/mL 1 sliding scale dose SQ DAILY high 09/25/23 (3 mL) subcutaneous pen (Novolog intensity SSI #15 mL FlexPen U-100 Insulin aspart) Allergies Allergy/AdvReac Type Severity Reaction Status Date / Time ciprofloxacin [From Cipro] Allergy Verified 07/26/23 15:39 levofloxacin [From Levaquin] Allergy Verified 07/26/23 15:39 [facility] Disclaimer: The information contained in this section may have been updated after the patient was seen, as this information can be updated by other users. Medical History Depression Diabetes type I Surgical History S/P triple vessel bypass Hx of cholecystectomy Social History Smoking Status: Never smoker alcohol intake: never current occupational status: other Travel in the last 8 weeks: None ROS Obtained: Yes All systems reviewed & no additional complaints except as documented Physical Exam General General appearance: alert and in distress Head Head exam: other (Numerous abrasions on his face) Chest Chest inspection: Present tenderness (Chest wall tenderness) Respiratory Respiratory exam: Present normal lung sounds bilaterally Cardiovascular Cardiovascular exam: Present regular rate and normal rhythm Abdominal Exam Abdominal exam: Present soft; Absent distention or tenderness Extremities Exam Extremities exam: Present other (Right proximal humeral tenderness difficulty with full extension of the arm) Neurological Exam Neurological exam: Present alert, oriented X3, CN II-XII intact and normal gait; Absent motor sensory deficit Medical Decision Making Jaret Inquiry Pt receiving controlled substance: No Vital Signs: 09/29/23 11:25 09/29/23 12:00 09/29/23 12:30 Temperature 97.6 F Temperature Source Oral Pulse Rate 92 H 95 H Pulse Rate [Right] 93 H Respiratory Rate 17 17 Blood Pressure 143/86 H 149/88 H Blood Pressure [Left Arm] 106/69 L Blood Pressure Mean [Left Arm] 81 Blood Pressure Source [Left Arm] Automatic Cuff 02 Sat by Pulse Oximetry 96 96 97 Oxygen Delivery Method Room Air Room Air Room Air 09/29/23 13:30 Temperature Temperature Source Pulse Rate 83 Pulse Rate [Right] Respiratory Rate 11 L Blood Pressure 146/81 H Blood Pressure [Left Arm] Blood Pressure Mean [Left Arm] Blood Pressure Source [Left Arm] 02 Sat by Pulse Oximetry 97 Oxygen Delivery Method Room Air Lab Data Lab results reviewed: Yes I reviewed the patient's lab results. Lab Results 09/29/23 12:03: WBC 10.6, RBC 4.57 L, Hgb 14.0 L, Hct 43.2, MCV 94.6 H, MCH 30.7, MCHC 32.4, RDW 13.2, Plt Count 188, MPV 8.9, Neut % (Auto) 81.7 H, Lymph % (Auto) 12.6, Reagan % (Auto) 4.5, Eos % (Auto) 0.5, Baso % (Auto) 0.8, Neut # (Auto) 8.6 H, Lymph # (Auto) 1.3, Reagan # (Auto) 0.5, Eos # (Auto) 0.1, Baso # (Auto) 0.1, Sodium 139, Potassium 3.4 L, Chloride 101, Carbon Dioxide 27, Anion Gap 14.4, BUN 31 H, Creatinine 1.40 H, Estimated Creat Clear 68, Estimated GFR 51 L, Est GFR ( Amer) 61, Glucose 160 H, Lactate 1.8, Calcium 9.2, Phosphorus 3.9, Magnesium 1.6, Total Bilirubin 0.7, AST 32, ALT 31, Alkaline Phosphatase 69, Troponin I 0.05 H, Total Protein 7.3, Albumin 3.8, Globulin 3.5 H, Albumin/Globulin Ratio 1.1, TSH 0.44 L 09/29/23 13:19: VBG pH 7.32, VBG pCO2 47.4, VBG pO2 31.6, VBG HCO3 23.8, VBG Total CO2 25.3, VBG O2 Saturation 57.2, VBG Base Excess -2.3, VBG Lactic Acid 2.8 H 09/29/23 13:41: Urine Color Yellow, Urine Appearance Clear, Urine pH 5.5, Ur Specific Edmond[place] 1.025, Urine Protein 2+, Urine Glucose (UA) 2+, Urine Ketones Negative, Urine Blood Negative, Urine Nitrate Negative, Urine Bilirubin Negative, Urine Urobilinogen 0.2, Ur Leukocyte Esterase Negative, Urine RBC 3-5, Urine WBC 3-5, Ur Transition Epith Cell 3-5, Urine Bacteria Trace 09/29/23 14:15: Ammonia < 9 L 09/29/23 12:03 09/29/23 12:03 Orders (Tests/Meds): ED MEDICATIONS Generic Name Dose Route Start Last Admin Trade Name Freq PRN Reason Stop Dose Admin Sodium Chloride 10 ml 09/29/23 13:07 09/29/23 13:08 Sodium Chloride 0.9% 10ml Syr (Rad Only) IV 10/29/23 13:06 10 ml NEEDED PRN Administration Maintain IV Site Discontinued Medications Generic Name Dose Route Start Last Admin Trade Name Freq PRN Reason Stop Dose Admin Lactated Ringer's 1,000 mls @ 999 mls/hr 09/29/23 12:45 09/29/23 13:45 Lactated Ringer's 1000 Ml Bag IV 09/29/23 13:45 999 mls/hr .Q1H1M RODRICK Administration Iopamidol 75 ml 09/29/23 13:07 09/29/23 13:08 Iopamidol-370 (76%);100ml Bottle IV 09/29/23 13:08 75 ml ONCE ONE Administration ORDERS Category Date Time Status CT abdomen pelvis w con Stat Cat Scan 09/29/23 12:[address] cervical spine wo con Stat Cat Scan 09/29/23 12:[address] chest w con Stat Cat Scan 09/29/23 12:[address] head/brain wo con Stat Cat Scan 09/29/23 12:37 Completed CXR --portable [XR chest portable] Stat Exams 09/29/23 12:24 Completed Humerus XR right [XR humerus RT] Stat Exams 09/29/23 12:37 Completed Ammonia Stat Lab 09/29/23 14:15 Completed Complete Blood Count Auto Diff Stat Lab 09/29/23 12:03 Completed Comprehensive Metabolic Panel Stat Lab 09/29/23 12:03 Completed Lactic Acid Stat Lab 09/29/23 12:03 Completed Magnesium Stat Lab 09/29/23 12:03 Completed Phosphorous Stat Lab 09/29/23 12:03 Completed TSH [Thyroid Stimulating Hormone] Stat Lab 09/29/23 12:03 Completed Troponin I Q3H Lab 09/29/23 15:30 Ordered Troponin I Q3H Lab 09/29/23 18:30 Ordered Troponin I Stat Lab 09/29/23 12:03 Completed UA [Urinalysis and Microscopic] Stat Lab 09/29/23 13:41 Completed Blood Culture Stat Micro 09/29/23 14:20 Received Venous Blood Gas Stat RT 09/29/23 13:19 Completed ECG Data Tracing #1: I reviewed this ECG and interpreted as documented below: Ventricular rate 95 sinus rhythm Q waves in the anterior precordial leads consistent with old infarct borderline right axis deviation no significant conduction abnormalities noted Medical Decision Narrative: Patient is a 68-year-old male who presents today with numerous complaints including 40 pound unintentional weight loss progressive weakness confusion frequent falls and injuries including to his head right lateral chest proximal humerus etc. Will get scans of his head neck chest abdomen pelvis both from a trauma and standpoint to evaluate for possible malignancy. Metabolic and infectious workup has been initiated as well. IV fluids will be administered and will reassess. Reassessment after extensive workup the following findings were pertinent. No evidence of any significant trauma on CT of the head neck chest abdomen pelvis. There is significant urinary retention Adams catheter was placed and anchored 2 L of urine output was obtained. Patient does not have any significant back pain or spinal findings. Final pathology certainly on the differential still. Remainder of his lower extremity neurologic exam is normal. Patient does have a mildly elevated troponin and Q waves on his EKG as stated above. After discussing with his daughter he had a heart attack back in 2007 at which point he had triple bypass surgery. The patient is unaware and does not remember this but his daughter is certain that he had an [place] in the past. Additionally his renal insufficiency is a little bit worse than it has been in the past with a creatinine 1.4. Given the fact that patient has had a relatively sudden decline over the last several weeks and has these other nonspecific neurologic findings including confusion and significant urinary retention and ataxia and highly concerned about normal pressure hydrocephalus. I believe he needs to be in a facility where he has inpatient neurology and possibly neurosurgery. I discussed the case with our hospitalist Dr. Mat Foster who also agrees. I spoken with the patient's power of transactional attorney, Lula his daughter, who has given her preferences for hospital to be transferred to. We are currently awaiting discussion with these referral based hospital. I spoke with Dr. Sage at [facility] who accepted the patient but they will not have any beds anytime soon patient was placed on the list. Subsequently I spoke with Dr. Brooks at [facility] who accepted the patient they should have beds shortly. Patient will be transferred an addendum will be added if there is any change in disposition. Critical Care Critical Care Time Critical Care Time: Yes Attestation: On 09/29/23, the high probability of a clinically significant, sudden or life threatening deterioration of the following system(s) required my full and direct attention, intervention and personal management. The time I documented below is in addition to time spent performing reported procedures but includes the following listed in this critical care notation. Total Time Total Critical Care Time: 35
--- NOTE | 2023-09-29 12:51 | PC.NURSE ---
pt to CT scan via stretcher
[2023-09-29 12:58] LABS: Lactic Acid 1.8 mmol/L (0.7-2.1)
[2023-09-29] MEDS: SODIUM CHLORIDE 0.9% 10ML SYR (RAD ONLY) 10 ML IV (13:08)
[2023-09-29] MEDS: IOPAMIDOL-370 (76%);100ML BOTTLE 75 ML IV (13:08)
[2023-09-29 13:09] LABS: Magnesium 1.6 mg/dl (1.6-2.3); Phosphorous 3.9 mg/dl (2.5-4.5)
[2023-09-29 13:27] LABS: VBG Base Excess -2.3 mmol/L (-2.4-2.3); VBG HCO3 23.8 mmol/L (23-30); VBG Oxygen Saturation 57.2 % (50-70); VBG PCO2 47.4 mmol/L (35-51); VBG PH 7.32 mmol/L (7.31-7.41); VBG PO2 31.6 mmol/L (28-40); VBG Total CO2 25.3 mmol/L (23-27)
[2023-09-29 13:28] LABS: Lactate Venous 2.8 mmol/L (0.4-2.0)
[2023-09-29 13:41] LABS: Thyroid Stimulating Hormone 0.44 uIU/mL (0.465-4.68)
[2023-09-29] MEDS: LACTATED RINGERS 1000ML 1,000 ML 999 ML IV (13:45)
[2023-09-29 14:15] LABS: Microscopic, Urine URINE MICROSCOPIC (MICROSCOPIC)
[2023-09-29 14:21] LABS: Appearance,Urine CLEAR (Clear); Bilirubin,Urine Negative (Negative); Blood, Urine Negative (Negative); Color,Urine YELLOW (Yellow); Glucose,Urine (UA) 2+ (Negative); Ketones,Urine Negative (Negative); Leukocyte Esterase,Urine Negative (Negative); Nitrate,Urine Negative (Negative); PH,Urine 5.5 (5.0-8.5); Protein,Urine 2+ (Negative); Specific Gravity, Urine 1.025 (1.005-1.030); Urobilinogen,Urine 0.2 EU/dl (0.2)
[2023-09-29 14:44] LABS: Bacteria,Urine Trace /lpf
--- NOTE | 2023-09-29 14:45 | PC.NURSE ---
o/p with CB for possible transfer at this time.
[2023-09-29 14:47] LABS: Ammonia < 9 umol/L (9-30)
--- NOTE | 2023-09-29 14:53 | PC.NURSE ---
Calling at this time.
--- NOTE | 2023-09-29 15:07 | PC.NURSE ---
MD Olivas on phone with [facility] hospitalist
--- NOTE | 2023-09-29 15:07 | PC.NURSE ---
Dr. Olivas s/w [facility]
--- NOTE | 2023-09-29 15:09 | PC.NURSE ---
MD Olivas on phone with dr wright from [facility]
--- NOTE | 2023-09-29 15:10 | PC.NURSE ---
Dr. Olivas s/w Dr. Hastings with [facility], accepts pt.
--- NOTE | 2023-09-29 17:08 | PC.NURSE ---
Called [facility] to check bed status. States the bed is available but waiting for room to be cleaned, will call once this step is completed. Pt & MD updated
--- NOTE | 2023-09-29 17:23 | PC.NURSE ---
Rounded on pt, no needs at this time.
--- NOTE | 2023-09-29 17:27 | PC.NURSE ---
Pt's daughter Elyse called for an update. This was given.
[2023-09-29 17:28] LABS: Reflex Lactic Add Lactic Reflex
--- NOTE | 2023-09-29 18:16 | PC.NURSE ---
Called pt's daughter, Elyse, to update that pt has been loaded and in route to [facility].
== END 2023-09-29 18:17 | disposition short-term general hospital (02) ==
PROVIDERS: Student in an Organized Health Care Education/Training Program; Emergency Provider Emergency Medicine; PCP Internal Medicine
DX: G93.41 Metabolic encephalopathy (principal); I49.3 Ventricular premature depolarization; I5A Non-ischemic myocardial injury (non-traumatic); R33.8 Other retention of urine; R32 Unspecified urinary incontinence; R26.9 Unspecified abnormalities of gait and mobility; R29.6 Repeated falls; N18.9 Chronic kidney disease, unspecified; Z79.4 Long term (current) use of insulin; Z79.85 Long-term (current) use of injectable non-insulin antidiabetic drugs
CPT/HCPCS: 51702; 70450; 71045; 71260; 72125; 73060; 74177; 80053; 81001; 82140; 82803; 83605; 83735; 84100; 84443; 84484; 85025; 87040; 93005; 96360; 99285; Q9967